=== PATIENT | male | born 1980 | race Caucasian/White ===

== ENCOUNTER 2019-06-12 18:15 | Emergency (ER) | payer SELFPAY ==
[2019-06-12] MEDS ORDERED: LIDOCAINE 1% MPF 5 ML VIAL ONE (18:49)
[2019-06-12] MEDS ORDERED: TETANUS & DIPHTHERIA TOX,ADULT 0.5 ML VIAL ONE (18:49)
--- NOTE | 2019-06-12 19:35 | ER ---
Nurse's Notes [facility] Name: Noe Shields Age: 38 yrs Sex: Male : 1980 Arrival Date: 06/12/2019 Time: 18:20 Bed 27 Private MD: Diagnosis: Laceration of the Right 5th Finger Presentation: 06/12 18:30 Presenting complaint: Patient states: "I cut my finger working on the kitchen sink". aa5 Transition of care: patient was not received from another setting of care. Complicating Factors: There are no complicating factors for this patient. Onset of symptoms was June 12, 2019. Risk Assessment: Do you want to hurt yourself or someone else? Patient reports no desire to harm self or others. Initial Sepsis Screen: Does the patient meet any 2 criteria? No. Patient's initial sepsis screen is negative. Does the patient have a suspected source of infection? No. Patient's initial sepsis screen is negative. Care prior to arrival: None. 18:30 Method Of Arrival: Ambulatory aa5 18:30 Acuity: XIAO 4 aa5 Historical: - Allergies: 18:29 No Known Allergies; aa5 - PMHx: 18:29 Kidney stones; aa5 - PSHx: 18:29 None; aa5 18:29 kidney stone removal; aa5 - Immunization history:: Last tetanus immunization: < 5 years ago. - Social history:: Smoking status: Patient/guardian denies using tobacco. - Ebola Screening: : No symptoms or risks identified at this time. Screenin:50 Abuse screen: Denies threats or abuse. Nutritional screening: No deficits noted. tr5 Tuberculosis screening: No symptoms or risk factors identified. Fall Risk None identified. Assessment: 18:50 General: Appears uncomfortable. General: Behavior is calm, cooperative. Pain: Complains tr5 of pain in right hand Pain does not radiate. Pain currently is 7 out of 10 on a pain scale. Quality of pain is described as aching, Pain began 1 hour ago. Neuro: Level of Consciousness is awake, alert, obeys commands, Oriented to person, place, time. Cardiovascular: Capillary refill < 3 seconds Pulses are all present. Respiratory: Airway is patent Respiratory effort is even, unlabored, Respiratory pattern is regular, symmetrical. GI: No signs and/or symptoms were reported involving the gastrointestinal system. : No signs and/or symptoms were reported regarding the genitourinary system. EENT: No signs and/or symptoms were reported regarding the EENT system. Derm: No signs and/or symptoms reported regarding the dermatologic system. Musculoskeletal: Capillary refill < 3 seconds, Range of motion: intact in all extremities. Injury Description: Laceration sustained to right hand is contaminated, was sustained 30-60 minutes ago. is bleeding a small amount. Vital Signs: 18:30 BP 122 / 90; Pulse 81; Resp 18 S; Temp 97.2(TE); Pulse Ox 99% on R/A; Weight 108.86 kg aa5 (R); Height 6 ft. 2 in. (187.96 cm) (R); Pain 4/10; 18:30 Body Mass Index 30.81 (108.86 kg, 187.96 cm) aa5 ED Course: 18:20 Patient arrived in ED. mr 18:29 Arm band placed on. aa5 18:31 Triage completed. aa5 18:35 Raul Millard RN is Primary Nurse. tr5 18:35 Joey Correa PA is PHCP. jmm 18:35 Mohsen Huang MD is Attending Physician. [facility] 18:50 Patient has correct armband on for positive identification. Bed in low position. Call tr5 light in reach. 19:24 Assist provider with laceration repair Set up tray. Performed by Joey ANAYA tr5 Patient tolerated. 19:50 Dressings: Kerlix non-adherent dressing x 1 right hand. tr5 19:51 Patient did not have IV access during this emergency room visit. 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 Exp: tr5 01/26/2021. Lot #: [id number]. } Route: IM; Site: right deltoid; 20:00 Follow up: Response: No adverse reaction tr5 Outcome: 19:34 Discharge ordered by . jm 19:50 Discharged to home ambulatory. tr5 19:50 Condition: stable 19:50 Discharge instructions given to patient, Instructed on discharge instructions, follow up and referral plans. Demonstrated understanding of instructions, follow-up care. 19:53 Patient left the ED. tr5 Signatures: Joey Correa PA PA jmm Rivera, Mary mr HerreraCynthia carlin, RN RN aa5 Raul Millard RN RN tr5
--- NOTE | 2019-06-12 19:35 | EDPHYS ---
Physician Documentation [facility] Name: Noe Shields Age: 38 yrs Sex: Male : 1980 Arrival Date: 06/12/2019 Time: 18:20 Bed 27 Private MD: ED Physician Mohsen Huang HPI: 06/12 18:37 This 38 yrs old Male presents to ER via Ambulatory with complaints of jmm Laceration To Hand. 18:37 The patient has a laceration Patient states that he accidently cut his right 5th finger jmm against a sink earlier today. Unknown tetanus immunizations. . Onset: The symptoms/episode began/occurred acutely, just prior to arrival. Associated signs and symptoms: Pertinent negatives: heavy bleeding, loss of consciousness, numbness distal to injury, suspected foreign body. The patient has not experienced similar symptoms in the past. Historical: - Allergies: 18:29 No Known Allergies; aa5 - PMHx: 18:29 Kidney stones; aa5 - PSHx: 18:29 None; aa5 18:29 kidney stone removal; aa5 - Immunization history:: Last tetanus immunization: < 5 years ago. - Social history:: Smoking status: Patient/guardian denies using tobacco. - Ebola Screening: : No symptoms or risks identified at this time. ROS: 18:37 Constitutional: Negative for fever, chills, and weight loss, Cardiovascular: Negative jmm for chest pain, palpitations, and edema, Respiratory: Negative for shortness of breath, cough, wheezing, and pleuritic chest pain. 18:37 MS/extremity: Positive for injury or acute deformity. 18:37 Skin: Positive for laceration(s). 18:37 All other systems are negative. Exam: 18:37 Constitutional: This is a well developed, well nourished patient who is awake, alert, jmm and in no acute distress. Head/Face: atraumatic. Eyes: EOMI, no conjunctival erythema appreciated ENT: Moist Mucus Membranes Neck: Trachea midline, Supple Chest/axilla: Normal chest wall appearance and motion. Cardiovascular: Regular rate and rhythm. No edema appreciated Respiratory: Normal respirations, no respiratory distress appreciated Abdomen/GI: Non distended, soft 18:37 Musculoskeletal/extremity: FROM appreciated to the right 5th phalanx against resistance. < 2 sec dist cap refill, NVI. 18:37 Skin: 1.5 cm laceration noted to the dorsal surface of the right proximal phalanx. . 18:37 Neuro: Orientation: is normal, Mentation: is normal, Memory: is normal. Vital Signs: 18:30 BP 122 / 90; Pulse 81; Resp 18 S; Temp 97.2(TE); Pulse Ox 99% on R/A; Weight 108.86 kg aa5 (R); Height 6 ft. 2 in. (187.96 cm) (R); Pain 4/10; 18:30 Body Mass Index 30.81 (108.86 kg, 187.96 cm) aa5 Laceration: 18:37 Wound Repair of 1.5cm ( 0.6in ) subcutaneous laceration to dorsal aspect of proximal jmm phalanx of right little finger. Distal neuro/vascular/tendon intact. Anesthesia: Local anesthetic administered with 2 mls of 1% lidocaine. Wound prep: Moderate cleansing with betadine by me. Skin closed with 3 5-0 Prolene using simple sutures and sterile technique. Patient tolerated fair. MDM: 18:37 Patient medically screened. [facility] 19:33 Data reviewed: vital signs, nurses notes. Counseling: I had a detailed discussion with tatum the patient and/or guardian regarding: the historical points, exam findings, and any diagnostic results supporting the discharge/admit diagnosis, the need for outpatient follow up, to return to the emergency department if symptoms worsen or persist or if there are any questions or concerns that arise at home. ED course: Patient given wound infection return precautions. Patient understood and agrees with the plan of care. . 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 Exp: tr5 01/26/2021. Lot #: [id number]. } Route: IM; Site: right deltoid; 20:00 Follow up: Response: No adverse reaction tr5 Disposition: 06/12/19 19:34 Discharged to Home. Impression: Laceration of the Right 5th Finger. - Condition is Stable. - Discharge Instructions: Laceration Care, Adult. - Medication Reconciliation Form, Thank You Letter, Antibiotic Education, Prescription Opioid Use form. - Work release form (06/13/19 14:31). eb - Follow up: Private Physician; When: 1 week; Reason: Recheck today's complaints, Continuance of care, Staple/Suture removal, Re-evaluation by your physician. Addendum: 06/14/2019 08:37 Co-signature as Attending Physician, Mohsen Huang MD I agree with the assessment and c velez plan of care. Signatures: Mohsen Huang MD MD cha Mickail, Joel, PA PA jmm Calderon, Audri, RN RN aa5 Raul Millard RN RN tr5 Jordyn Shannon Corrections: (The following items were deleted from the chart) 06/12 19:53 19:34 06/12/2019 19:34 Discharged to Home. Impression: Laceration of the Right 5th tr5 Finger. Condition is Stable. Forms are Medication Reconciliation Form, Thank You Letter, Antibiotic Education, Prescription Opioid Use. Follow up: Private Physician; When: 1 week; Reason: Recheck today's complaints, Continuance of care, Staple/Suture removal, Re-evaluation by your physician. tatum
[2019-06-12 20:06] VITALS: BP 122/90; TEMP 97.2; O2SAT 99
== END 2019-06-12 19:53 | disposition home or self-care (01) ==
LOC: ER 18:15
PROC: 0JQJ0ZZ Repair Right Hand Subcutaneous Tissue and Fascia, Open Approach (ICD-10-PCS; principal; 2019-06-12)
DX: S61.216A Laceration without foreign body of right little finger without damage to nail, initial encounter (principal); W26.8XXA Contact with other sharp object(s), not elsewhere classified, initial encounter; Y93.89 Activity, other specified; Y92.9 Unspecified place or not applicable
CPT/HCPCS: 90471; 90714; 99283

== ENCOUNTER 2022-02-02 11:08 | Emergency (ER) | payer SELFPAY ==
--- OUTSIDE RECORDS SUMMARY | 2022-02-02 11:10 | XMS REPORT | Continuity of Care Document ---
:1980 Author Organization [facility] t Address [address] [place] [address] [place] [address] Care Team Providers Name Role Phone TRAN JONES Attending Clinician Unavailable TRAN JONES Admitting Clinician Unavailable Problems This patient has no known problems. Allergies, Adverse Reactions, Alerts This patient has no known allergies or adverse reactions. Medications This patient has no known medications. Procedures This patient has no known procedures. Encounters Start End Encounter Admission Attending Care Care Encounter Source Date/Time Date/Time Type Type Clinicians Facility Department ID 2017-10-25 2017-10-25 Emergency [facility] [id number] 5 [place] 16:39:30 16:39:30 Health 2017-06-08 2017-06-09 Outpatient 1 PETER JONES OBE [id number] [facility] 20:09:00 18:21:00 [facility] Hospit a l ([facility]) Results Test Description Test Time Test Comments Results Result Sour e Comments PYELOGRAM 2017-06-12 [facility] 12:53:[address] [id number] IMAGING REPORTPatient Name: KYLAH DE LA CRUZ RDate of Service: [id number]: 36 Sex: M Order #: [id number] Room: OBEDOB: 1980 X-Ray Number: [id number] Record Number: [id number] Hospital Number: [id number] Physician: TRAN JONESOrdering Physician: NANCY MASON retrograde pyelogram 06/12/2017HISTORY: Distal right ureteral calculusCOMPARISON: None3 fluorographic spot images are submitted. A right ureteral stent is inplace. Some contrast is seen in a nondilated right renal collecting system.No definite calculus is noted.Imaging is limited due to technique. The inferior most aspect of the pelvisis excluded from the images.No other definite acute process.Electronicall y Signed By: Mukul Parish M.D., 06/12/2017 12:50 PMLegally authenticated by ISABELA CEBALLOS 2017-06-12 12:50:35 PATHOLOGY REPORT 2017-06-10 - 10:36:00 TISSUE CONSULTATION REPORTBANORTH [facility]ITALDEPARTMENT OF PATHOLOGYP.[address] [address] ade SARAH BETH HALL M.D.JASON E. MATHERNE, M.D.JOSEPH M. WEMPE, M.D. Patient: KYLAH DE LA CRUZ Roman 1980 36 MRoom:Hosp#: [id number] ___Ordering Physician: VIRGINIE MASON MSONTRIYahirte Rec.: 06/10/2017Date of Proc.: 06/10/2017Lab No.: [id number] Clinical History:- Right renal calculus.FINAL ANATOMIC DIAGNOSIS:RIGHT RENAL CALCULUS, REMOVAL:- STONE (GROSS DIAGNOSIS ONLY).MICROSCOPIC EXAMINATION:- None.GROSS APPEARANCE:- Labeled "right renal calculus," is a single dickson-brown stone and itmeasures 0.5 cm in greatest dimension. The specimen is for grossdiagnosis only. The stone will be sent out for chemical analysis.PATHOLOGIST: Puneet Oviedo Joseph Electronically Signed: 06/10/2017
[2022-02-02] MEDS ORDERED: METHYLPREDNISOLONE 125 MG INJ ONE (12:16)
[2022-02-02] MEDS ORDERED: AZITHROMYCIN 250 MG TAB ONE (12:16)
[2022-02-02] MEDS ORDERED: HYDROCODONE/APAP 10/325 TAB ONE (12:16)
--- NOTE | 2022-02-02 12:35 | EDPHYS ---
Physician Documentation [facility] Name: Noe Shields Age: 41 yrs Sex: Male : 1980 Arrival Date: 02/02/2022 Time: 11:10 Bed 12 Private MD: ED Physician Michelet Lorenzana HPI: 02/02 12:08 This 41 yrs old Male presents to ER via Ambulatory with complaints of Sore Throat, ma2 Headache, Arm Pain, Hernia. 12:08 41-year-old male with sore throat cough runny nose for few days, patient also has ma2 chronic neck pain and MRI done in the past that shows disc prolapse, patient stated neck pain has been intermittent for few weeks, he has follow-up with PCP for that, of note he denies fever, worsening of neck pain no focal weakness change in sensation or urinary incontinence or retention.. 12:10 Associated signs and symptoms: Pertinent negatives cough, dysphagia, fever, flu-like ma2 symptoms, headache. Historical: - Allergies: 11:27 No Known Allergies; iw - PMHx: 11:27 Kidney stones; iw - Social history:: Patient/guardian denies using alcohol, street drugs, The patient lives with family. - Family history:: not pertinent. ROS: 12:08 Constitutional: Negative for fever, chills, and weight loss. ma2 12:08 All other systems are negative. Exam: 12:08 Constitutional: This is a well developed, well nourished patient who is awake, alert, ma2 and in no acute distress. Head/Face: Normocephalic, atraumatic. Eyes: Pupils equal round and reactive to light, extra-ocular motions intact. Lids and lashes normal. Conjunctiva and sclera are non-icteric and not injected. Cornea within normal limits. Periorbital areas with no swelling, redness, or edema. ENT: Patient has inflamed tonsillitis, with no abscess uvula midline, otherwise nares patent. No nasal discharge, no septal abnormalities noted. Tympanic membranes are normal and external auditory canals are clear. Oropharynx with no redness, swelling, or masses, exudates, or evidence of obstruction, uvula midline. Mucous membranes moist. Neck: Trachea midline, no thyromegaly or masses palpated, and no cervical lymphadenopathy. Supple, full range of motion without nuchal rigidity, or vertebral point tenderness. No Meningismus. Chest/axilla: Normal chest wall appearance and motion. Nontender with no deformity. No lesions are appreciated. Cardiovascular: Regular rate and rhythm with a normal S1 and S2. No gallops, murmurs, or rubs. Normal PMI, no JVD. No pulse deficits. Respiratory: Lungs have equal breath sounds bilaterally, clear to auscultation and percussion. No rales, rhonchi or wheezes noted. No increased work of breathing, no retractions or nasal flaring. Abdomen/GI: Soft, non-tender, with normal bowel sounds. No distension or tympany. No guarding or rebound. No evidence of tenderness throughout. Back: No spinal tenderness. No costovertebral tenderness. Full range of motion. Skin: Warm, dry with normal turgor. Normal color with no rashes, no lesions, and no evidence of cellulitis. MS/ Extremity: Pulses equal, no cyanosis. Neurovascular intact. Full, normal range of motion. Neuro: Awake and alert, GCS 15, oriented to person, place, time, and situation. Cranial nerves II-XII grossly intact. Motor strength 5/5 in all extremities. Sensory grossly intact. Cerebellar exam normal. Normal gait. Vital Signs: 11:25 BP 129 / 87; Pulse 105; Resp 18; Temp 98.6; Pulse Ox 99% on R/A; iw MDM: 12:10 Differential diagnosis: bronchitis, erythema multiforme, gastroesophageal reflux ma2 disease, group A strep tonsillitis. Data reviewed: vital signs, nurses notes. Counseling: I had a detailed discussion with the patient and/or guardian regarding: the historical points, exam findings, and any diagnostic results supporting the discharge/admit diagnosis, the presence of at least one elevated blood pressure reading (>120/80) during this emergency department visit, the need for outpatient follow up. Response to treatment: the patient's symptoms have markedly improved after treatment. 12:34 Patient medically screened. ma2 02/02 11:30 Order name: Strep; Complete Time: 12:02 iw 02/02 11:59 Order name: Throat Culture EDMS 02/02 12:04 Order name: Sling; Complete Time: 12:33 ma2 Administered Medications: 12:18 Not Given (Patient Refused): Ketorolac 60 mg IM once ss 12:18 Drug: Zithromax (azithromycin) 500 mg Route: PO; ss 12:48 Follow up: Response: No adverse reaction; Medication administered at discharge. 12:18 Drug: MethylPREDNISolone Sodium Succinate 125 mg Route: IM; Site: right gluteus; ss 12:48 Follow up: Response: No adverse reaction; Medication administered at discharge. 12:18 Drug: [place] (HYDROcodone-acetaminophen) 10 mg-325 mg 1 tabs Route: PO; ss 12:47 Follow up: Response: No adverse reaction; Medication administered at discharge. Disposition Summary: 02/02/22 12:34 Discharge Ordered Location: Home ma2 Condition: Stable ma2 Diagnosis - Acute recurrent tonsillitis, unspecified ma2 - Chronic pain, not elsewhere classified - neck pain ma2 Followup: ma2 - With: Private Physician - When: Tomorrow - Reason: If symptoms return, Continuance of care Discharge Instructions: - Discharge Summary Sheet ma2 - Tonsillitis, [id number] ma2 Forms: - Medication Reconciliation Form ma2 - Thank You Letter ma2 - Antibiotic Education ma2 - Prescription Opioid Use ma2 Prescriptions: - NEURONTIN 100 MG - take 1 tablet by ORAL route 3 times per day; 21 tablet; Refills: 0, Product ma2 Selection Permitted - TORADOL 10 Mg - take 1 tablet by ORAL route 3 times per day; 21 tablet; Refills: 0, Product ma2 Selection Permitted - Diclofenac Sodium 75 mg Oral Tablet Sustained Release - take 1 tablet by ORAL route 2 times per day; 30 tablet; Refills: 0, Product ma2 Selection Permitted - Zithromax Z-Sim 250 mg Oral Tablet - take 1 tablet by ORAL route as directed for 5 days Day 1 - take two (2) tablets ma2 one time. Day 2, 3, 4 , 5 take one (1) tablet once daily.; 6 tablet; Refills: 0, Product Selection Permitted - Medrol (Sim) 4 mg Oral Tablets, Dose Pack - take 1 tablet by ORAL route as directed - follow package instructions; 1 ma2 packet; Refills: 0, Product Selection Permitted Signatures: Dispatcher [employer] Beena Hampton RN RN Laxmi Childs RN RN ss Alzahri, Mohammad, MD MD ma2 Corrections: (The following items were deleted from the chart) 12:11 12:08 Constitutional: This is a well developed, well nourished patient who is awake, ma2 alert, and in no acute distress. Head/Face: Normocephalic, atraumatic. Eyes: Pupils equal round and reactive to light, extra-ocular motions intact. Lids and lashes normal. Conjunctiva and sclera are non-icteric and not injected. Cornea within normal limits. Periorbital areas with no swelling, redness, or edema. ENT: Nares patent. No nasal discharge, no septal abnormalities noted. Tympanic membranes are normal and external auditory canals are clear. Oropharynx with no redness, swelling, or masses, exudates, or evidence of obstruction, uvula midline. Mucous membranes moist. Neck: Trachea midline, no thyromegaly or masses palpated, and no cervical lymphadenopathy. Supple, full range of motion without nuchal rigidity, or vertebral point tenderness. No Meningismus. Chest/axilla: Normal chest wall appearance and motion. Nontender with no deformity. No lesions are appreciated. Cardiovascular: Regular rate and rhythm with a normal S1 and S2. No gallops, murmurs, or rubs. Normal PMI, no JVD. No pulse deficits. Respiratory: Lungs have equal breath sounds bilaterally, clear to auscultation and percussion. No rales, rhonchi or wheezes noted. No increased work of breathing, no retractions or nasal flaring. Abdomen/GI: Soft, non-tender, with normal bowel sounds. No distension or tympany. No guarding or rebound. No evidence of tenderness throughout. Back: No spinal tenderness. No costovertebral tenderness. Full range of motion. Skin: Warm, dry with normal turgor. Normal color with no rashes, no lesions, and no evidence of cellulitis. MS/ Extremity: Pulses equal, no cyanosis. Neurovascular intact. Full, normal range of motion. Neuro: Awake and alert, GCS 15, oriented to person, place, time, and situation. Cranial nerves II-XII grossly intact. Motor strength 5/5 in all extremities. Sensory grossly intact. Cerebellar exam normal. Normal gait. ma2
--- NOTE | 2022-02-02 12:35 | ER ---
Nurse's Notes [facility] Name: Noe Shields Age: 41 yrs Sex: Male : 1980 Arrival Date: 02/02/2022 Time: 11:10 Bed 12 Private MD: Diagnosis: Acute recurrent tonsillitis, unspecified;Chronic pain, not elsewhere classified-neck pain Presentation: 02/02 11:25 Chief complaint: Patient states: feel like I have strep throat , has had it a lot of iw times , has fever, body aches, also has a herniated disc in his neck and he did something yesterday and has pain in right elbow/arm now , can't move it. Coronavirus screen: At this time, the client does not indicate any symptoms associated with coronavirus-19. Ebola Screen: Patient negative for fever greater than or equal to 101.5 degrees Fahrenheit, and additional compatible Ebola Virus Disease symptoms Patient denies exposure to infectious person. Patient denies travel to an Ebola-affected area in the 21 days before illness onset. No symptoms or risks identified at this time. Initial Sepsis Screen: Does the patient meet any 2 criteria? No. Patient's initial sepsis screen is negative. Does the patient have a suspected source of infection? No. Patient's initial sepsis screen is negative. Risk Assessment: Do you want to hurt yourself or someone else? Patient reports no desire to harm self or others. Onset of symptoms was January 31, 2022. 11:25 Method Of Arrival: Ambulatory iw 11:25 Acuity: XIAO 3 iw Historical: - Allergies: 11:27 No Known Allergies; iw - PMHx: 11:27 Kidney stones; iw - Social history:: Patient/guardian denies using alcohol, street drugs, The patient lives with family. - Family history:: not pertinent. Screenin:39 Abuse screen: Denies threats or abuse. Denies injuries from another. Nutritional iw screening: No deficits noted. Tuberculosis screening: No symptoms or risk factors identified. Fall Risk None identified. Assessment: 11:38 General: Appears uncomfortable, Behavior is cooperative. Pain: Complains of pain in iw throat. Neuro: Level of Consciousness is awake, alert, obeys commands, Moves all extremities. Respiratory: Airway is patent Respiratory effort is even, unlabored, Breath sounds are clear bilaterally. EENT: Throat is reddened bilaterally. Derm: Skin is intact, is healthy with good turgor. Musculoskeletal: Range of motion: limited in right elbow. 12:18 Reassessment: Pt refused Toradol, states that no non narcotic pain medication help him ss and is requesting [place] or Tylenol with codeine. Dr. Lorenzana notified and states ok to give [place]. Medications given as ordered. Vital Signs: 11:25 BP 129 / 87; Pulse 105; Resp 18; Temp 98.6; Pulse Ox 99% on R/A; iw ED Course: 11:10 Patient arrived in ED. mr 11:27 Triage completed. iw 11:29 Beena Chiu, RN is Primary Nurse. iw 11:38 Arm band placed on. iw 11:45 Michelet Lorenzana MD is Attending Physician. ma2 12:18 Patient has correct armband on for positive identification. Adult w/ patient. ss 12:18 No provider procedures requiring assistance completed. Patient did not have IV access ss during this emergency room visit. Administered Medications: 12:18 Not Given (Patient Refused): Ketorolac 60 mg IM once ss 12:18 Drug: Zithromax (azithromycin) 500 mg Route: PO; ss 12:48 Follow up: Response: No adverse reaction; Medication administered at discharge. ss 12:18 Drug: MethylPREDNISolone Sodium Succinate 125 mg Route: IM; Site: right gluteus; ss 12:48 Follow up: Response: No adverse reaction; Medication administered at discharge. ss 12:18 Drug: [place] (HYDROcodone-acetaminophen) 10 mg-325 mg 1 tabs Route: PO; ss 12:47 Follow up: Response: No adverse reaction; Medication administered at discharge. ss Medication: 12:18 VIS not applicable for this client. ss Outcome: 12:34 Discharge ordered by . ma2 12:48 Discharged to home ambulatory. ss 12:48 Condition: good 12:48 Discharge instructions given to patient, family, Instructed on discharge instructions, follow up and referral plans. medication usage, Demonstrated understanding of instructions, follow-up care, medications, Prescriptions given X x5 12:49 Patient left the ED. ss Signatures: Bryan, Cassy mr Beena Chiu, GERARDO CARRILLO Laxmi Childs RN RN Alzahri, Mohammad, MD MD ma2
[2022-02-02 12:55] VITALS: BP 129/87; TEMP 98.6; O2SAT 99
== END 2022-02-02 12:49 | disposition home or self-care (01) ==
LOC: ER 11:08
DX: J03.91 Acute recurrent tonsillitis, unspecified (principal); G89.29 Other chronic pain
CPT/HCPCS: 87070; 87081; 96372; 99283; J2930

== ENCOUNTER 2022-03-20 11:23 | Emergency (ER) | payer OTHER, SELFPAY ==
[2022-03-20] MEDS ORDERED: dexAMETHasone 10 MG/ML VIAL ONE (15:11)
[2022-03-20] MEDS ORDERED: HYDROMORPHONE HCL 1 MG/ML INJ ONE (15:11)
--- NOTE | 2022-03-20 15:41 | ER ---
Nurse's Notes [facility] Name: Noe Shields Age: 41 yrs Sex: Male : 1980 Arrival Date: 03/20/2022 Time: 11:25 Bed 12 Private MD: Diagnosis: Cervical disc disorder with radiculopathy, cervicothoracic region-chronic;Low back pain Presentation: 03/20 12:08 Chief complaint: Patient states: "I have a herniated disc in my neck and something is ss going on. I keep getting these shocks down my back." Pt reports that this has been ongoing x 3 days. Denies injury. Coronavirus screen: Client denies travel out of the [place] in the last 14 days. Ebola Screen: Patient denies exposure to infectious person. Patient denies travel to an Ebola-affected area in the 21 days before illness onset. Acute neurological deficit: none identified. Initial Sepsis Screen: Does the patient meet any 2 criteria? No. Patient's initial sepsis screen is negative. Does the patient have a suspected source of infection? No. Patient's initial sepsis screen is negative. Risk Assessment: Do you want to hurt yourself or someone else? Patient reports no desire to harm self or others. Onset of symptoms was March 17, 2022. 12:08 Method Of Arrival: Ambulatory ss 12:08 Acuity: XIAO 4 ss Historical: - Allergies: 12:10 tramadol; ss - PMHx: 12:10 Kidney stones; herniated disc in neck; ss - Immunization history:: Client reports having NOT received the Covid vaccine. - Social history:: Smoking status: Patient denies any tobacco usage or history of. Screenin:02 Abuse screen: Denies threats or abuse. Denies injuries from another. Nutritional ss screening: No deficits noted. Tuberculosis screening: Never had TB. Fall Risk None identified. Assessment: 11:30 Reassessment: Called to triage. No answer. Vital Signs: 12:10 Pulse 85; Resp 16; Temp 98.1(TE); Pulse Ox 100% on R/A; Weight 108.86 kg; Height 6 ft. ss 2 in. (187.96 cm); Pain 8/10; 12:13 BP 135 / 96; ss 12:10 Body Mass Index 30.81 (108.86 kg, 187.96 cm) ss ED Course: 11:25 Patient arrived in ED. as 12:10 Triage completed. ss 12:10 Arm band placed on right wrist. ss 13:24 Mohsen Perry PA is PHCP. cp 13:24 Duncan Herr MD is Attending Physician. cp 14:51 Laxmi Childs RN is Primary Nurse. ss 15:39 Gustavo Lira MD is Referral Physician. cp 16:00 No provider procedures requiring assistance completed. Patient did not have IV access ss during this emergency room visit. 16:02 Patient has correct armband on for positive identification. Bed in low position. ss Administered Medications: 15:09 Drug: Dexamethasone 10 mg Route: IM; Site: right deltoid; ss 16:00 Follow up: Response: No adverse reaction; Marked relief of symptoms; Pain is decreased; ss RASS: Alert and Calm (0) 15:09 Drug: Dilaudid (HYDROmorphone) 1 mg Route: IM; Site: left deltoid; ss 16:00 Follow up: Response: No adverse reaction; Marked relief of symptoms; Pain is decreased ss Outcome: 15:40 Discharge ordered by MD. cp 16:00 Discharged to home ambulatory, with significant other. ss 16:00 Condition: good 16:00 Discharge instructions given to patient, family, Instructed on discharge instructions, follow up and referral plans. no driving heavy equipment, Demonstrated understanding of instructions, follow-up care, medications, Prescriptions given X 3. 16:02 Patient left the ED. ss Signatures: Courtney Ballesteros as Laxmi Childs RN RN Mohsen Perry PA PA cp Corrections: (The following items were deleted from the chart) 12:11 12:10 Allergies: No Known Allergies; ss ss
--- NOTE | 2022-03-20 15:41 | EDPHYS ---
Physician Documentation [facility] Name: Noe Shields Age: 41 yrs Sex: Male : 1980 Arrival Date: 03/20/2022 Time: 11:25 Bed 12 Private MD: ED Physician Duncan Herr HPI: 03/20 14:45 This 41 yrs old Male presents to ER via Ambulatory with complaints of Neck Pain, <24hrs cp Old, Back Pain. 14:45 The patient or guardian complains of pain, that is chronic. The symptoms are located at cp the C4, C5 and C6. Onset: The symptoms/episode began/occurred chronic, worse over past 1-2 months. Associated signs and symptoms: Pertinent positives: tingling, in the right arm, weakness, of the right hand, Pertinent negatives: chills, constipation, fever, bladder incontinence, bowel incontinence, numbness, vomiting. The pain radiates to the right arm. Severity of symptoms: in the emergency department the symptoms are actually worse, markedly. Patient reports due to change in insurance, he has been unable to get appointment for surgical consultation with a DR Singh neurosurgeon. Patient reports he is prescribed pain meds, but pain worse today with tightness and pain to lower back. Historical: - Allergies: 12:10 tramadol; ss - PMHx: 12:10 Kidney stones; herniated disc in neck; ss - Immunization history:: Client reports having NOT received the Covid vaccine. - Social history:: Smoking status: Patient denies any tobacco usage or history of. ROS: 14:50 Constitutional: Negative for body aches, chills, fever, poor PO intake. cp 14:50 Eyes: Negative for injury, pain, redness, and discharge. cp 14:50 ENT: Negative for drainage from ear(s), ear pain, sore throat, difficulty swallowing, difficulty handling secretions. 14:50 Neck: Positive for pain with movement, pain at rest, stiffness, tenderness. 14:50 Cardiovascular: Negative for chest pain, edema, palpitations. 14:50 Respiratory: Negative for cough, shortness of breath, wheezing. 14:50 Abdomen/GI: Negative for abdominal pain, nausea, vomiting, and diarrhea, bowel incontinence. 14:50 Back: Positive for pain at rest, pain with movement, of the low back. 14:50 : Negative for bladder incontinence, testicular pain 14:50 Neuro: Positive for tingling, weakness, of the right hand and right arm, Negative for altered mental status, headache, numbness. 14:50 All other systems are negative. Exam: 14:55 Constitutional: The patient appears in no acute distress, alert, awake, non-toxic, well cp developed, well nourished, uncomfortable. 14:55 Head/Face: Normocephalic, atraumatic. cp 14:55 Eyes: Periorbital structures: appear normal, Conjunctiva: normal, no exudate, no injection, Sclera: no appreciated abnormality, Lids and lashes: appear normal, bilaterally. 14:55 ENT: External ear(s): are unremarkable, Nose: is normal, Mouth: Lips: moist, Oral mucosa: moist, Posterior pharynx: Airway: no evidence of obstruction, patent. 14:55 Neck: C-spine: vertebral tenderness, that is severe, appreciated at C4, C5 and C6, crepitus, is not appreciated, ROM/movement: pain, that is severe, with any movement, Meningeal signs: are not present, nuchal rigidity, is not appreciated. 14:55 Chest/axilla: Inspection: normal. 14:55 Cardiovascular: Rate: normal, Rhythm: regular. 14:55 Respiratory: the patient does not display signs of respiratory distress, Respirations: normal, no use of accessory muscles, no retractions, labored breathing, is not present, Breath sounds: are clear throughout, no decreased breath sounds, no stridor, no wheezing. 14:55 Abdomen/GI: Inspection: abdomen appears normal, Palpation: abdomen is soft and non-tender, in all quadrants. 14:55 Back: pain, that is moderate, of the left low back, ROM is painful, with all movement. 14:55 Skin: cellulitis, is not appreciated, no rash present. 14:55 Neuro: Orientation: to person, place \T\ time. Mentation: is normal, Motor: moves all fours, strength is normal, Sensation: no obvious gross deficits, Gait: is steady, Deep tendon reflexes are 2+ (normal) in the right tricep, right bicep, right brachioradialis, left bicep, left tricep and left brachioradialis. Vital Signs: 12:10 Pulse 85; Resp 16; Temp 98.1(TE); Pulse Ox 100% on R/A; Weight 108.86 kg; Height 6 ft. ss 2 in. (187.96 cm); Pain 8/10; 12:13 BP 135 / 96; ss 12:10 Body Mass Index 30.81 (108.86 kg, 187.96 cm) ss MDM: 14:20 Patient medically screened. cp 15:00 Differential diagnosis: Cervical Disc Herniation cervical strain, cauda equina, spinal cp stenosis. 15:40 Data reviewed: vital signs, nurses notes. 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 Administered Medications: 15:09 Drug: Dexamethasone 10 mg Route: IM; Site: right deltoid; ss 16:00 Follow up: Response: No adverse reaction; Marked relief of symptoms; Pain is decreased; ss RASS: Alert and Calm (0) 15:09 Drug: Dilaudid (HYDROmorphone) 1 mg Route: IM; Site: left deltoid; ss 16:00 Follow up: Response: No adverse reaction; Marked relief of symptoms; Pain is decreased ss Disposition Summary: 03/20/22 15:40 Discharge Ordered Location: Home cp Problem: chronic cp Symptoms: have improved cp Condition: Stable cp Diagnosis - Cervical disc disorder with radiculopathy, cervicothoracic region - chronic cp - Low back pain cp Followup: cp - With: Gustavo Lira MD - When: 2 - 3 days - Reason: Recheck today's complaints Discharge Instructions: - Discharge Summary Sheet cp - Acute Back Pain, Adult cp - Cervical Radiculopathy cp - Herniated Disk cp - Back Exercises cp Forms: - Medication Reconciliation Form cp - Thank You Letter cp - Antibiotic Education cp - Prescription Opioid Use cp Prescriptions: - Lidoderm 5 % Topical adhesive patch,medicated - apply 1 patch by TOPICAL route once daily; 20 patch; Refills: 0, Product cp Selection Permitted - Baclofen 10 mg Oral Tablet - take 1 tablet by ORAL route 3 times per day; 20 tablet; Refills: 0, Product cp Selection Permitted - Medrol (Sim) 4 mg Oral Tablets, Dose Pack - take 1 tablet by ORAL route as directed - follow package instructions; 1 cp packet; Refills: 0, Product Selection Permitted Signatures: Laxmi Childs RN RN ss Mohsen Perry PA PA cp Corrections: (The following items were deleted from the chart) 12:11 12:10 Allergies: No Known Allergies; ss
[2022-03-20 18:38] VITALS: BP 135/96
[2022-03-20 18:56] VITALS: TEMP 98.1; O2SAT 100
== END 2022-03-20 16:02 | disposition home or self-care (01) ==
LOC: ER 11:23
DX: M50.13 Cervical disc disorder with radiculopathy, cervicothoracic region (principal); Z87.442 Personal history of urinary calculi; Z88.5 Allergy status to narcotic agent
CPT/HCPCS: J1100; J1170

== ENCOUNTER 2022-04-09 06:30 | Emergency (ER) | payer OTHER ==
--- OUTSIDE RECORDS SUMMARY | 2022-04-09 06:33 | XMS REPORT | Continuity of Care Document ---
:1980 Author Organization [facility] t Address [address] [place] [address] [place] [id number] Care Team Providers Name Role Phone KAREN Attending Clinician Unavailable KAREN Admitting Clinician Unavailable Problems This patient has no known problems. Allergies, Adverse Reactions, Alerts This patient has no known allergies or adverse reactions. Medications This patient has no known medications. Procedures This patient has no known procedures. Encounters Start End Encounter Admission Attending Care Care Encounter Source Date/Time Date/Time Type Type Clinicians Facility Department ID 2017-10-25 2017-10-25 Emergency [facility] MED [id number] 5 [place] 16:39:30 16:39:30 Health 2017-06-08 2017-06-09 Outpatient 1 PETER JONES OBJb [id number] [facility] 20:09[facility]00 [facility] Results Test Description Test Time Test Comments Results Result Sourc e Comments PYELOGRAM 2017-06-12 [facility] 12:53:[address] [id number] IMAGING REPORTPatient Name: KYLAH DE LA CRUZ RDate of Service: [id number]: 36 Sex: M Order #: [id number] Room: OBEDOB: 1980 X-Ray Number: [id number] Record Number: [id number] Hospital Number: [id number] Physician: Gopal JONESing Physician: NANCY MASON retrograde pyelogram 06/12/2017HISTORY: Distal [...] PATHOLOGY REPORT 2017-06-10 - 10:36:00 [facility] PATHOLOGYP.[address]BEAUN[facility] [place] [address] ade SARAH BETH HALL M.D.JASON E. MATHERNE, M.D.JOSEPH M. WEMPE, M.D. Patient: KYLAH DE LA CRUZ Roman 1980 36 MRoom:[facility]#: [id number] ___Ordering Physician: VIRGINIE MASON TNJAMAALMNYahirte Rec.: 06/10/2017Date of Proc.: 06/10/2017Lab No.: [id number] Clinical History:- Right renal calculus.FINAL ANATOMIC DIAGNOSIS:RIGHT RENAL CALCULUS, REMOVAL:- STONE (GROSS DIAGNOSIS ONLY).MICROSCOPIC EXAMINATION:- None.GROSS APPEARANCE:- Labeled "right renal calculus," is a single dickson-brown stone and itmeasures 0.5 cm in greatest dimension. The specimen is for grossdiagnosis only. The stone will be sent out for chemical analysis.PATHOLOGIST: Puneet Oviedo Joseph Electronically Signed: 06/10/2017
[2022-04-09] MEDS ORDERED: METHYLPREDNISOLONE 125 MG INJ ONE (07:40)
[2022-04-09] MEDS ORDERED: METHOCARBAMOL 1,000 MG/10 ML VIAL IV ONE (07:41)
[2022-04-09] MEDS ORDERED: KETOROLAC 30 MG/ML INJ ONE ×2 (07:41→09:48)
[2022-04-09] MEDS ORDERED: NA CHLORIDE 0.9% 100 ML ONE (07:41)
--- NOTE | 2022-04-09 09:30 | EDPHYS ---
Physician Documentation [facility] Name: Noe Shields Age: 41 yrs Sex: Male : 1980 Arrival Date: 04/09/2022 Time: 06:33 Bed 16 Private MD: ED Physician Mohsen Huang HPI: 04/09 09:22 This 41 yrs old Male presents to ER via Ambulatory with complaints of Back allison Pain. 09:22 The patient presents with pain that is acute, that is chronic, with no known mechanism allison of injury. The symptoms are located in the low back, thoracic area and lumbar area. Onset: The symptoms/episode began/occurred 6 month(s) ago. The pain radiates to the lumbar area. Associated signs and symptoms: Pertinent positives: numbness, tingling. The problem was sustained from a chronic condition, the patient has known disc disease. Modifying factors: The patient symptoms are alleviated by nothing, remaining still, the patient symptoms are aggravated by bending, running out of pain medications, standing. Severity of symptoms: At their worst the symptoms were mild, in the emergency department the symptoms are unchanged. The patient has not experienced similar symptoms in the past. Historical: - Allergies: 06:41 tramadol; bh1 - PMHx: 06:41 herniated disc in neck; Kidney stones; bh1 - Immunization history:: Adult Immunizations up to date. - Social history:: Smoking status: Patient denies any tobacco usage or history of. - Family history:: not pertinent. ROS: 09:22 Constitutional: Negative for fever, chills, and weight loss, Eyes: Negative for injury, allison pain, redness, and discharge, ENT: Negative for injury, pain, and discharge, Neck: Negative for injury, pain, and swelling, Cardiovascular: Negative for chest pain, palpitations, and edema, Respiratory: Negative for shortness of breath, cough, wheezing, and pleuritic chest pain, Abdomen/GI: Negative for abdominal pain, nausea, vomiting, diarrhea, and constipation, : Negative for injury, bleeding, discharge, and swelling, MS/Extremity: Negative for injury and deformity, Skin: Negative for injury, rash, and discoloration, Neuro: Negative for headache, weakness, numbness, tingling, and seizure, Psych: Negative for depression, anxiety, suicide ideation, homicidal ideation, and hallucinations, Allergy/Immunology: Negative for hives, rash, and allergies, Endocrine: Negative for neck swelling, polydipsia, polyuria, polyphagia, and marked weight changes, Hematologic/Lymphatic: Negative for swollen nodes, abnormal bleeding, and unusual bruising. 09:22 Back: Positive for decreased range of motion, pain at rest, pain with movement. Exam: :22 Constitutional: This is a well developed, well nourished patient who is awake, alert, allison and in no acute distress. Head/Face: Normocephalic, atraumatic. Eyes: Pupils equal round and reactive to light, extra-ocular motions intact. Lids and lashes normal. Conjunctiva and sclera are non-icteric and not injected. Cornea within normal limits. Periorbital areas with no swelling, redness, or edema. ENT: Nares patent. No nasal discharge, no septal abnormalities noted. Tympanic membranes are normal and external auditory canals are clear. Oropharynx with no redness, swelling, or masses, exudates, or evidence of obstruction, uvula midline. Mucous membranes moist. Neck: Trachea midline, no thyromegaly or masses palpated, and no cervical lymphadenopathy. Supple, full range of motion without nuchal rigidity, or vertebral point tenderness. No Meningismus. Chest/axilla: Normal chest wall appearance and motion. Nontender with no deformity. No lesions are appreciated. Cardiovascular: Regular rate and rhythm with a normal S1 and S2. No gallops, murmurs, or rubs. Normal PMI, no JVD. No pulse deficits. Respiratory: Lungs have equal breath sounds bilaterally, clear to auscultation and percussion. No rales, rhonchi or wheezes noted. No increased work of breathing, no retractions or nasal flaring. Abdomen/GI: Soft, non-tender, with normal bowel sounds. No distension or tympany. No guarding or rebound. No evidence of tenderness throughout. Male : Normal genitalia with no discharge or lesions. Skin: Warm, dry with normal turgor. Normal color with no rashes, no lesions, and no evidence of cellulitis. MS/ Extremity: Pulses equal, no cyanosis. Neurovascular intact. Full, normal range of motion. Neuro: Awake and alert, GCS 15, oriented to person, place, time, and situation. Cranial nerves II-XII grossly intact. Motor strength 5/5 in all extremities. Sensory grossly intact. Cerebellar exam normal. Normal gait. Psych: Awake, alert, with orientation to person, place and time. Behavior, mood, and affect are within normal limits. 09:22 Back: pain, that is mild, that is moderate, of the thoracic area and lumbar area, ROM is painful, with flexion, with extension, normal spinal alignment noted, CVA tenderness, is absent, vertebral tenderness, is not appreciated, muscle spasm, is appreciated in the left subscapular area, right subscapular area, left low back, left mid back, right mid back and right low back. Vital Signs: 06:39 BP 123 / 88; Pulse 73; Resp 20; Temp 97.5; Pulse Ox 100% on R/A; Weight 111.13 kg; [facility] Height 6 ft. 2 in. (187.96 cm); Pain 7/10; 09:00 BP 127 / 74; Pulse 88; Resp 16; Pulse Ox 100% on R/A; vg1 10:00 BP 129 / 77; Pulse 95; Resp 16; Pulse Ox 100% on R/A; vg1 06:39 Body Mass Index 31.46 (111.13 kg, 187.96 cm) [facility] MDM: 07:24 Patient medically screened. [facility] 09:27 Data reviewed: vital signs, nurses notes, radiologic studies, MRI. Data interpreted: [facility] radiation monitor: not applicable for this patient encounter. rate is 73 beats/min, rhythm is regular, Pulse oximetry: on room air. Counseling: I had a detailed discussion with the patient and/or guardian regarding: the historical points, exam findings, and any diagnostic results supporting the discharge/admit diagnosis, lab results, radiology results. Administered Medications: 07:49 Drug: SOLU-Medrol (methylPrednisoLONE) 125 mg Route: IVP; Site: left antecubital; [facility] 09:05 Follow up: Response: No adverse reaction; No change in condition [facility] 07:51 Drug: Ketorolac 15 mg Route: IVP; Site: left antecubital; 1 09:05 Follow up: Response: No adverse reaction; No change in condition [facility] 08:00 Drug: Robaxin (methocarbamol) 1 grams Route: IVPB; Infused Over: 1 hrs; Site: left vg1 antecubital; 09:05 Follow up: IV Status: Completed infusion; IV Intake: 100ml vg1 10:00 Drug: Decadron (dexamethasone) 4 mg Route: PO; vg1 10:12 Follow up: Response: Medication administered at discharge. vg1 10:02 Drug: Ketorolac 15 mg Route: IVP; Site: left antecubital; vg1 10:12 Follow up: Response: Medication administered at discharge. vg1 Disposition Summary: 04/09/22 09:29 Discharge Ordered Location: Home [facility] Problem: new allison Symptoms: have improved allison Condition: Stable allison Diagnosis - Cervical disc disorder with radiculopathy allison - Radiculopathy, thoracolumbar region allison Followup: allison - With: Private Physician - When: 2 - 3 days - Reason: Recheck today's complaints, Continuance of care, Re-evaluation by your physician Followup: [facility] - With: Sanjay Guy MD - When: 2 - 3 days - Reason: Recheck today's complaints, Continuance of care, Re-evaluation by your physician Discharge Instructions: - Discharge Summary Sheet allison - Acute Back Pain, Adult allison - Cervical Radiculopathy allison - Chronic Back Pain, Hqcg-of-[id number] allison - Radicular Pain [facility] Forms: - Medication Reconciliation Form [facility] - Thank You Letter [facility] - Antibiotic Education [facility] - Prescription Opioid Use [facility] Prescriptions: - dexamethasone 2 mg Oral tablet - take 1 tablet by ORAL route 2 times per day; 10 tablet; Refills: 0, Product [facility] Selection Permitted - Ibuprofen 600 mg Oral Tablet - take 1 tablet by ORAL route every 6 hours As needed take with food; 30 tablet; [facility] Refills: 0, Product Selection Permitted - Cyclobenzaprine 5 mg Oral Tablet - take 1 tablet by ORAL route 3 times per day As needed; 15 tablet; Refills: 0, [facility] Product Selection Permitted - Tylenol-Codeine #3 300 mg-30 mg Oral - take 2 tablet by ORAL route every 6 hours; 20 tablet; Refills: 0, Product [facility] Selection Permitted Signatures: Mohsen Huang MD MD cha Rittger, Kevin, MD MD kdr Garcia, Victoria RN RN vg1 Philomena Gupta RN RN bh1
--- NOTE | 2022-04-09 09:30 | ER ---
Nurse's Notes [facility] Name: Noe Shields Age: 41 yrs Sex: Male : 1980 Arrival Date: 04/09/2022 Time: 06:33 Bed 16 Private MD: Diagnosis: Cervical disc disorder with radiculopathy;Radiculopathy, thoracolumbar region Presentation: 04/09 06:39 Chief complaint: Patient states: PATIENT REPORTS CHRONIC BACK PAIN DUE TO A HERNIATED 1 DISC IN HIS LUMBAR SPINE. HE IS NOW REPORTING PAIN IN HIS RIGHT ARM, NECK AND LEG AND IS UNABLE TO GET TREATMENT FROM HIS PCP AT THIS TIME. Coronavirus screen: Vaccine status: Patient reports being unvaccinated. At this time, the client does not indicate any symptoms associated with coronavirus-19. Ebola Screen: Patient negative for fever greater than or equal to 101.5 degrees Fahrenheit, and additional compatible Ebola Virus Disease symptoms. Initial Sepsis Screen: Does the patient meet any 2 criteria? No. Patient's initial sepsis screen is negative. Does the patient have a suspected source of infection? No. Patient's initial sepsis screen is negative. Risk Assessment: Do you want to hurt yourself or someone else? Patient reports no desire to harm self or others. Onset of symptoms was April 09, 2022. 06:39 Method Of Arrival: Ambulatory [facility] 06:39 Acuity: XIAO 4 [facility] Triage Assessment: 06:42 General: Appears uncomfortable, Behavior is calm, cooperative, appropriate for age. [facility] Pain: Complains of pain in neck, right arm and right leg Pain currently is 7 out of 10 on a pain scale. Musculoskeletal: Circulation, motion, and sensation intact. Historical: - Allergies: 06:41 tramadol; 1 - PMHx: 06:41 herniated disc in neck; Kidney stones; 1 - Immunization history:: Adult Immunizations up to date. - Social history:: Smoking status: Patient denies any tobacco usage or history of. - Family history:: not pertinent. Screenin:03 Abuse screen: Denies threats or abuse. Nutritional screening: No deficits noted. vg1 Tuberculosis screening: No symptoms or risk factors identified. Fall Risk No fall in past 12 months (0 pts). No secondary diagnosis (0 pts). IV access (20 points). Ambulatory Aid- None/Bed Rest/Nurse Assist (0 pts). Gait- Normal/Bed Rest/Wheelchair (0 pts) Mental Status- Oriented to own ability (0 pts). Total Quarles Fall Scale indicates No Risk (0-24 pts). Assessment: 06:57 General: Appears uncomfortable, Behavior is calm, cooperative. Pain: Complains of pain ll3 in right leg and right arm and neck Pain currently is 7 out of 10 on a pain scale. Neuro: Level of Consciousness is awake, alert, obeys commands, Oriented to person, place, time, situation. Respiratory: Respiratory effort is even, unlabored, Respiratory pattern is regular, symmetrical. Derm: Skin is pink, warm \\T\\ dry. Musculoskeletal: Circulation, motion, and sensation intact. Range of motion: limited in right knee Reports pain in right leg and right arm and neck. 08:03 Reassessment: Patient appears in no apparent distress at this time. No changes from vg1 previously documented assessment. Patient and/or family updated on plan of care and expected duration. Pain level reassessed. Patient is alert, oriented x 3, equal unlabored respirations, skin warm/dry/pink. 09:04 Reassessment: Patient appears in no apparent distress at this time. No changes from vg1 previously documented assessment. Patient and/or family updated on plan of care and expected duration. Pain level reassessed. Patient is alert, oriented x 3, equal unlabored respirations, skin warm/dry/pink. Pt stated "im still in a lot of pain" notified provider. Vital Signs: 06:39 BP 123 / 88; Pulse 73; Resp 20; Temp 97.5; Pulse Ox 100% on R/A; Weight 111.13 kg; 1 Height 6 ft. 2 in. (187.96 cm); Pain 7/10; 09:00 BP 127 / 74; Pulse 88; Resp 16; Pulse Ox 100% on R/A; vg1 10:00 BP 129 / 77; Pulse 95; Resp 16; Pulse Ox 100% on R/A; vg1 06:39 Body Mass Index 31.46 (111.13 kg, 187.96 cm) [facility] ED Course: 06:33 Patient arrived in ED. 2 06:41 Triage completed. 1 06:42 Arm band placed on right wrist. [facility] 07:04 Duncan Herr MD is Attending Physician. kdr 07:23 Attending Physician role handed off by Duncan Herr MD allison 07:23 Mohsen Huang MD is Attending Physician. allison 07:29 Viviane Martin, GERARDO is Primary Nurse. vg1 07:48 Inserted saline lock: 20 gauge in left antecubital area, using aseptic technique. vg1 08:03 Patient has correct armband on for positive identification. Bed in low position. Call vg1 light in reach. Side rails up X 1. 08:03 No provider procedures requiring assistance completed. vg1 09:29 Sanjay Guy MD is Referral Physician. allison 10:13 IV discontinued, intact, bleeding controlled, No redness/swelling at site. Pressure vg1 dressing applied. Administered Medications: 07:49 Drug: SOLU-Medrol (methylPrednisoLONE) 125 mg Route: IVP; Site: left antecubital; vg1 09:05 Follow up: Response: No adverse reaction; No change in condition vg1 07:51 Drug: Ketorolac 15 mg Route: IVP; Site: left antecubital; vg1 09:05 Follow up: Response: No adverse reaction; No change in condition vg1 08:00 Drug: Robaxin (methocarbamol) 1 grams Route: IVPB; Infused Over: 1 hrs; Site: left vg1 antecubital; 09:05 Follow up: IV Status: Completed infusion; IV Intake: 100ml vg1 10:00 Drug: Decadron (dexamethasone) 4 mg Route: PO; vg1 10:12 Follow up: Response: Medication administered at discharge. vg1 10:02 Drug: Ketorolac 15 mg Route: IVP; Site: left antecubital; vg1 10:12 Follow up: Response: Medication administered at discharge. vg1 Medication: 08:04 VIS not applicable for this client. vg1 Intake: 09:05 IV: 100ml; Total: 100ml. vg1 Outcome: 09:29 Discharge ordered by . allison 10:13 Discharged to home ambulatory. vg1 10:13 Condition: good 10:13 Discharge instructions given to patient, Instructed on discharge instructions, follow up and referral plans. medication usage, Demonstrated understanding of instructions, follow-up care, medications, Prescriptions given X 4. 10:13 Patient left the ED. vg1 Signatures: Sal, MohsenMD MD allison baugh Kevin, MD MD kdr Garcia, Viviane, RN RN vg1 Tara Giraldo, Wilfred, RN RN ll3 Philomena Gupta RN RN bh1
[2022-04-09] MEDS ORDERED: dexAMETHasone 4 MG TAB ONE (09:48)
[2022-04-09 10:23] VITALS: TEMP 97.5; O2SAT 100
[2022-04-09 10:26] VITALS: BP 129/77
== END 2022-04-09 10:13 | disposition home or self-care (01) ==
LOC: ER 06:30
DX: M54.15 Radiculopathy, thoracolumbar region (principal); Z87.442 Personal history of urinary calculi; Z88.5 Allergy status to narcotic agent
CPT/HCPCS: 96365; 96375; 99283; J8540; J2930; J2800

== ENCOUNTER 2022-06-11 11:54 | Emergency (ER) | payer OTHER ==
[2022-06-11] MEDS ORDERED: MORPHINE 4 MG/ML SYR ONE (12:22)
[2022-06-11] MEDS ORDERED: dexAMETHasone 10 MG/ML VIAL ONE (12:22)
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
--- NOTE | 2022-06-11 13:13 | ER ---
Nurse's Notes [facility] Name: Noe Shields Age: 41 yrs Sex: Male : 1980 Arrival Date: 06/11/2022 Time: 11:55 Bed 17 Private MD: Ruth Linder Diagnosis: Low back pain Presentation: 06/11 12:13 Chief complaint: Patient states: low back pain and neck pain that is chronic, denies aa5 any recent injury. Coronavirus screen: At this time, the client does not indicate any symptoms associated with coronavirus-19. Ebola Screen: Patient denies travel to an Ebola-affected area in the 21 days before illness onset. Initial Sepsis Screen: Does the patient meet any 2 criteria? No. Patient's initial sepsis screen is negative. Does the patient have a suspected source of infection? No. Patient's initial sepsis screen is negative. Risk Assessment: Do you want to hurt yourself or someone else? Patient reports no desire to harm self or others. Onset of symptoms was May 2022. 12:13 Acuity: XIAO 4 aa5 12:13 Method Of Arrival: Ambulatory aa5 Triage Assessment: 12:39 General: Appears in no apparent distress. uncomfortable, Behavior is calm, cooperative. jh6 Pain: Complains of pain in coccyx, left lower back and right lower back Pain currently is 9 out of 10 on a pain scale. Quality of pain is described as sharp, shooting, Pain began 2-3 days ago. Is continuous, Aggravated by increased activity, repositioning, weight bearing. Musculoskeletal: Circulation, motion, and sensation intact. Capillary refill < 3 seconds, Range of motion: limited in right hip, right knee and right ankle. Historical: - Allergies: 12:14 tramadol; aa5 - PMHx: 12:14 herniated disc in neck; Kidney stones; aa5 - Immunization history:: Adult Immunizations unknown. - Social history:: Smoking status: Patient denies any tobacco usage or history of. Screenin:38 Abuse screen: Denies threats or abuse. Denies injuries from another. Nutritional jh6 screening: No deficits noted. Tuberculosis screening: No symptoms or risk factors identified. Fall Risk Gait- Impaired (20 pts.). Assessment: 12:40 General: Appears in no apparent distress. uncomfortable. Pain: Complains of pain in jh6 coccyx, left lower back and right lower back Pain radiates to right leg Pain currently is 9 out of 10 on a pain scale. Pain began 2-3 days ago. Is continuous, Aggravated by increased activity, repositioning, weight bearing. Neuro: No deficits noted. Carreon Agitation-Sedation Scale (RASS): Level of Consciousness is awake, alert, obeys commands. Musculoskeletal: Reports numbness in right leg since 2-3 DAYS.. 13:20 Reassessment: Patient and/or family updated on plan of care and expected duration. Pain jh6 level reassessed. Patient is alert, oriented x 3, equal unlabored respirations, skin warm/dry/pink. Patient states feeling better. Patient states symptoms have improved. Pain: Pain currently is 4 out of 10 on a pain scale. Vital Signs: 12:15 BP 138 / 88; Pulse 79; Resp 18 S; Temp 98.4(TE); Pulse Ox 98% on R/A; Weight 111.58 kg aa5 (R); Height 6 ft. 2 in. (187.96 cm) (R); 13:20 BP 127 / 82; Pulse 77; Resp 18; Pulse Ox 100% ; Pain 4/10; jh6 12:15 Body Mass Index 31.58 (111.58 kg, 187.96 cm) aa5 ED Course: 11:55 Patient arrived in ED. am2 11:55 Ruth Linder FNP-C is Private Physician. am2 11:55 Kalyn Pruett FNP is [facility]. jh7 11:55 Mohsen Huang MD is Attending Physician. jh7 12:14 Triage completed. aa5 12:15 Arm band placed on. aa5 12:20 Kalyn Brennan, GERARDO is Primary Nurse. jh6 12:41 Bed in low position. Call light in reach. Side rails up X2. Adult w/ patient. jh6 12:41 No provider procedures requiring assistance completed. Inserted Patient did not have IV jh6 access during this emergency room visit. Administered Medications: 12:30 Drug: Dexamethasone 10 mg Route: IM; Site: right gluteus; jh6 13:20 Follow up: Response: Pain is decreased jh6 12:30 Drug: morphine 4 mg Route: IM; Site: right gluteus; jh6 13:20 Follow up: Response: Pain is decreased jh6 Medication: 12:42 VIS not applicable for this client. 6 Outcome: 13:13 Discharge ordered by . jh7 13:30 Discharged to home ambulatory. 6 13:30 Condition: improved 13:30 Discharge instructions given to patient. 13:30 Patient left the ED. 6 Signatures: Cynthia Herrera, RN RN aa5 Rossana Rodgers Jennifer, RN RN jh6 Kalyn Pruett FNP FNP 7
--- NOTE | 2022-06-11 13:14 | EDPHYS ---
Physician Documentation [facility] Name: Noe Shields Age: 41 yrs Sex: Male : 1980 Arrival Date: 06/11/2022 Time: 11:55 Bed 17 Private MD: Ruth Linder ED Physician Mohsen uHang HPI: 06/11 12:20 This 41 yrs old Male presents to ER via Ambulatory with complaints of Back Pain. jh7 12:20 The patient presents with pain that is chronic, with no known mechanism of injury. The jh7 symptoms are located in the low back. Onset: The symptoms/episode began/occurred 2 day(s) ago. The pain does not radiate. Associated signs and symptoms: The patient has no apparent associated signs or symptoms. Pt presents for chronic low back pain with a flare up occurring 2 days ago. Reports that he had an MRI done 1 month ago showing multiple herniated disc. Requesting pain medicine.. Historical: - Allergies: 12:14 tramadol; aa5 - PMHx: 12:14 herniated disc in neck; Kidney stones; aa5 - Immunization history:: Adult Immunizations unknown. - Social history:: Smoking status: Patient denies any tobacco usage or history of. ROS: 12:20 Constitutional: Negative for fever, chills, and weight loss, Eyes: Negative for injury, jh7 pain, redness, and discharge, ENT: Negative for injury, pain, and discharge, Neck: Negative for injury, pain, and swelling, Cardiovascular: Negative for chest pain, palpitations, and edema, Respiratory: Negative for shortness of breath, cough, wheezing, and pleuritic chest pain, Abdomen/GI: Negative for abdominal pain, nausea, vomiting, diarrhea, and constipation, MS/Extremity: Negative for injury and deformity, Skin: Negative for injury, rash, and discoloration, Neuro: Negative for headache, weakness, numbness, tingling, and seizure. 12:20 Back: Positive for decreased range of motion, pain at rest, pain with movement, Negative for injury or acute deformity. 12:20 All other systems are negative. Exam: 12:20 Constitutional: This is a well developed, well nourished patient who is awake, alert, jh7 and in no acute distress. Head/Face: Normocephalic, atraumatic. Cardiovascular: Regular rate and rhythm with a normal S1 and S2. No gallops, murmurs, or rubs. Normal PMI, no JVD. No pulse deficits. Respiratory: Lungs have equal breath sounds bilaterally, clear to auscultation and percussion. No rales, rhonchi or wheezes noted. No increased work of breathing, no retractions or nasal flaring. Abdomen/GI: Soft, non-tender, with normal bowel sounds. No distension or tympany. No guarding or rebound. No evidence of tenderness throughout. Skin: Warm, dry with normal turgor. Normal color with no rashes, no lesions, and no evidence of cellulitis. MS/ Extremity: Pulses equal, no cyanosis. Neurovascular intact. Full, normal range of motion. Neuro: Awake and alert, GCS 15, oriented to person, place, time, and situation. Motor strength 5/5 in all extremities. Sensory grossly intact. Normal gait. 12:20 Back: pain, that is moderate, of the lumbar area, ROM is painful, with all movement, CVA tenderness, is absent. 14:49 Neuro: Orientation: is normal, Mentation: is normal, Memory: is normal, Motor: is jh7 normal, Sensation: is normal, Gait: is steady, at a normal pace. Vital Signs: 12:15 BP 138 / 88; Pulse 79; Resp 18 S; Temp 98.4(TE); Pulse Ox 98% on R/A; Weight 111.58 kg aa5 (R); Height 6 ft. 2 in. (187.96 cm) (R); 13:20 BP 127 / 82; Pulse 77; Resp 18; Pulse Ox 100% ; Pain 4/10; jh6 12:15 Body Mass Index 31.58 (111.58 kg, 187.96 cm) aa5 MDM: 12:10 Patient medically screened. jh7 13:40 Differential diagnosis: chronic back pain. Data reviewed: vital signs, nurses notes. 7 Data interpreted: Pulse oximetry: is 100 %. Interpretation: normal. Counseling: I had a detailed discussion with the patient and/or guardian regarding: the historical points, exam findings, and any diagnostic results supporting the discharge/admit diagnosis, the need for outpatient follow up, a neurosurgeon, a orthopedic surgeon, to return to the emergency department if symptoms worsen or persist or if there are any questions or concerns that arise at home. Administered Medications: 12:30 Drug: Dexamethasone 10 mg Route: IM; Site: right gluteus; [facility] 13:20 Follow up: Response: Pain is decreased [facility] 12:30 Drug: morphine 4 mg Route: IM; Site: right gluteus; 6 13:20 Follow up: Response: Pain is decreased [facility] Disposition Summary: 06/11/22 13:13 Discharge Ordered Location: Home [facility] Problem: new [facility] Symptoms: have improved [facility] Condition: Stable [facility] Diagnosis - Low back pain [facility] Followup: [facility] - With: Private Physician - When: 2 - 3 days - Reason: Recheck today's complaints Discharge Instructions: - Discharge Summary Sheet [facility] - Chronic Back Pain [facility] Forms: - Medication Reconciliation Form [facility] - Thank You Letter [facility] - Family Work Release [facility] Prescriptions: - Medrol (Sim) 4 mg Oral Tablets, Dose Pack - take 1 tablet by ORAL route as directed - follow package instructions; 1 [facility] packet; Refills: 0, Product Selection Permitted Signatures: Cynthia Herrera, RN RN aa5 Kalyn Brennan RN RN jh6 Klayn Pruett, SCRAP B[employer]CH MAKER S[employer]KER 7
[2022-06-13 20:49] VITALS: TEMP 98.4
[2022-06-13 20:55] VITALS: BP 127/82; O2SAT 100
== END 2022-06-11 13:30 | disposition home or self-care (01) ==
LOC: ER 11:54
DX: M54.50 Low back pain, unspecified (principal)
CPT/HCPCS: 96372; 99283; J1100

== ENCOUNTER 2022-07-04 19:51 | Emergency (ER) | payer OTHER ==
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
[2022-07-04] MEDS ORDERED: MORPHINE 4 MG/ML SYR ONE (22:11)
[2022-07-04] MEDS ORDERED: dexAMETHasone 10 MG/ML VIAL ONE (22:11)
[2022-07-04] MEDS ORDERED: KETOROLAC 30 MG/ML INJ ONE (22:11)
--- NOTE | 2022-07-04 22:48 | EDPHYS ---
Physician Documentation [facility] Name: Noe Shields Age: 41 yrs Sex: Male : 1980 Arrival Date: 07/04/2022 Time: 19:54 Bed 20 Private MD: ED Physician Stephie Leyva HPI: 07/04 22:00 This 41 yrs old Male presents to ER via Ambulatory with complaints of Neck Pain, <24hrs cp Old, Back Pain. 22:00 The patient or guardian complains of pain, that is chronic. Onset: The symptoms/episode cp began/occurred 9 month(s) ago. Associated signs and symptoms: Pertinent positives: headache, nausea, Paresthesias vomiting, weakness, of the right arm, radiation of pain, Pertinent negatives: fever. 22:00 The patient presents with pain that is chronic. cp 22:00 The symptoms are located in the low back. The pain radiates to the right leg. cp Associated signs and symptoms: Pertinent negatives: bowel or bladder incontinence, fever, denies new injury, denies saddle anesthesia. Patient reports he is awaiting insurance approval for surgery for herniated discs and appointment with pain management. Historical: - Allergies: 21:00 tramadol; 5 - PMHx: 21:00 herniated disc in neck; Kidney stones; [facility] - PSHx: 21:00 kidney stone removal; [facility] - Immunization history:: Adult Immunizations up to date. - Social history:: Smoking status: Patient denies any tobacco usage or history of. ROS: 22:05 Constitutional: Negative for body aches, chills, fever, poor PO intake. cp 22:05 Eyes: Negative for injury, pain, redness, and discharge. cp 22:05 ENT: Negative for drainage from ear(s), ear pain, sore throat, difficulty swallowing, difficulty handling secretions. 22:05 Neck: Positive for pain with movement, pain at rest, Negative for injury or acute deformity. 22:05 Cardiovascular: Negative for chest pain, edema, palpitations. 22:05 Respiratory: Negative for cough, shortness of breath, wheezing. 22:05 Abdomen/GI: Positive for nausea, vomiting, Negative for abdominal pain, diarrhea, constipation, bowel incontinence. 22:05 Back: Positive for pain at rest, pain with movement, of the low back. 22:05 : Negative for urinary symptoms, bladder incontinence. 22:05 Neuro: Negative for saddle anesthesia. 22:05 All other systems are negative. Exam: 22:10 Constitutional: The patient appears in no acute distress, alert, awake, non-toxic, well cp developed, well nourished, uncomfortable. 22:10 Head/Face: Normocephalic, atraumatic. cp 22:10 Eyes: Periorbital structures: appear normal, Conjunctiva: normal, no exudate, no injection, Sclera: no appreciated abnormality, Lids and lashes: appear normal. 22:10 ENT: External ear(s): are unremarkable, Nose: is normal, Mouth: Lips: moist, Oral mucosa: pink and intact, moist, Posterior pharynx: Airway: no evidence of obstruction, patent. 22:10 Neck: ROM/movement: pain, that is moderate, with any movement. 22:10 Chest/axilla: Inspection: normal, Palpation: is normal, no crepitus, no tenderness. 22:10 Cardiovascular: Rate: normal, Rhythm: regular. 22:10 Respiratory: the patient does not display signs of respiratory distress, Respirations: normal, no use of accessory muscles, no retractions, labored breathing, is not present, Breath sounds: are clear throughout, no decreased breath sounds, no stridor, no wheezing. 22:10 Abdomen/GI: Inspection: abdomen appears normal, Bowel sounds: active, all quadrants, Palpation: abdomen is soft and non-tender, in all quadrants, rebound tenderness, is not appreciated, involuntary guarding, is not appreciated. 22:10 Back: pain, that is moderate, of the low back, ROM is painful, with all movement. 22:10 Neuro: Orientation: to person, place \T\ time. Mentation: is normal, Motor: moves all fours, strength is normal, Sensation: no obvious gross deficits, Gait: is steady, Deep tendon reflexes are 2+ (normal) in the right tricep, right brachioradialis, right patellar, right Achilles, left bicep, left tricep, left brachioradialis, left patellar and left Achilles. Vital Signs: 20:56 BP 119 / 70; Pulse 87; Resp 18; Temp 98.6; Pulse Ox 99% on R/A; Weight 113.4 kg; Height jh5 6 ft. 2 in. (187.96 cm); Pain 10/10; 21:41 BP 142 / 82; Pulse 78; Resp 20; Pulse Ox 99% on R/A; Pain 10/10; kl 22:53 BP 136 / 72; Pulse 67; Resp 16; Pulse Ox 99% on R/A; kl 20:56 Body Mass Index 32.10 (113.40 kg, 187.96 cm) [facility] MDM: 21:05 Patient medically screened. cp 22:46 Data reviewed: vital signs, nurses notes. cp 22:46 Differential diagnosis: C-Spine Fracture Cervical Disc Herniation. cp 22:46 ED course: VSS. Pain improved with meds. Will discharge to home for continued cp monitoring. Administered Medications: 22:29 Drug: morphine 8 mg Route: IM; Site: right vastus lateralis; kl 22:48 Follow up: Response: No adverse reaction; Marked relief of symptoms kl 22:29 Drug: Ketorolac 30 mg Route: IM; Site: right vastus lateralis; kl 22:48 Follow up: Response: No adverse reaction; Marked relief of symptoms kl 22:29 Drug: Decadron (dexamethasone) 10 mg Route: IM; Site: left vastus lateralis; kl 22:48 Follow up: Response: No adverse reaction; Marked relief of symptoms kl Disposition Summary: 07/04/22 22:47 Discharge Ordered Location: Home cp Problem: chronic cp Symptoms: have improved cp Condition: Stable cp Diagnosis - Cervical disc disorder with radiculopathy, unspecified cervical region cp - Intervertebral disc disorders with radiculopathy, lumbar region cp Followup: cp - With: Private Physician - When: 1 - 2 days - Reason: Recheck today's complaints Discharge Instructions: - Discharge Summary Sheet cp - Cervical Radiculopathy cp - Herniated Disk cp - Lumbosacral Radiculopathy cp - Degenerative Disk Disease cp Forms: - Medication Reconciliation Form cp - Thank You Letter cp - Antibiotic Education cp - Prescription Opioid Use cp Prescriptions: - Cyclobenzaprine 10 mg Oral Tablet - take 1 tablet by ORAL route every 8 hours As needed; 20 tablet; Refills: 0, cp Product Selection Permitted - Medrol (Sim) 4 mg Oral Tablets, Dose Pack - take 1 tablet by ORAL route as directed - follow package instructions; 1 cp packet; Refills: 0, Product Selection Permitted Signatures: Ricarda Reid, RN RN Mohsen Perez PA PA cp Rees, Jessica RN RN jh5
--- NOTE | 2022-07-04 22:48 | ER ---
Nurse's Notes [facility] Name: Noe Shields Age: 41 yrs Sex: Male : 1980 Arrival Date: 07/04/2022 Time: 19:54 Bed 20 Private MD: Diagnosis: Cervical disc disorder with radiculopathy, unspecified cervical region;Intervertebral disc disorders with radiculopathy, lumbar region Presentation: 07/04 20:56 Chief complaint: Patient states: 9 months of pain, herniated discs, osteoarthritis, and jh5 nerve damage, and had an MRI a month ago. I am supposed to have surgery but insurance doesn't cover it, I go to emergency room every month. Vomiting, and nausea with headache because of lower back, down right leg, right arm. Coronavirus screen: Vaccine status: Patient reports being unvaccinated. Client denies travel out of the [place] in the last 14 days. Ebola Screen: Patient negative for fever greater than or equal to 101.5 degrees Fahrenheit, and additional compatible Ebola Virus Disease symptoms Patient denies exposure to infectious person. Patient denies travel to an Ebola-affected area in the 21 days before illness onset. Initial Sepsis Screen: Does the patient meet any 2 criteria? No. Patient's initial sepsis screen is negative. Does the patient have a suspected source of infection? No. Patient's initial sepsis screen is negative. Risk Assessment: Do you want to hurt yourself or someone else? Patient reports no desire to harm self or others. Onset of symptoms was October 2021. 20:56 Method Of Arrival: Ambulatory [facility] 20:56 Acuity: XIAO 3 jh5 22:31 Note pt ambulatory gait steady. kl Triage Assessment: 21:00 General: Appears in no apparent distress. uncomfortable, well groomed, well developed, jh5 well nourished, Behavior is calm, cooperative, appropriate for age, agitated, fussy, restless. Pain: Complains of pain in back, shoulders, neck. Historical: - Allergies: 21:00 tramadol; jh5 - PMHx: 21:00 herniated disc in neck; Kidney stones; jh5 - PSHx: 21:00 kidney stone removal; jh5 - Immunization history:: Adult Immunizations up to date. - Social history:: Smoking status: Patient denies any tobacco usage or history of. Screenin:41 Abuse screen: Denies threats or abuse. Nutritional screening: No deficits noted. kl Tuberculosis screening: No symptoms or risk factors identified. Fall Risk No fall in past 12 months (0 pts). Secondary diagnosis (15 points) impaired mobility, No IV (0 pts). Ambulatory Aid- None/Bed Rest/Nurse Assist (0 pts). Gait- Normal/Bed Rest/Wheelchair (0 pts) Mental Status- Oriented to own ability (0 pts). Assessment: 21:40 General: Appears uncomfortable, well groomed, well developed, Behavior is cooperative. kl Pain: Complains of pain in back of neck, posterior chest and back Pain currently is 10 out of 10 on a pain scale. Neuro: Level of Consciousness is awake, alert, obeys commands, Oriented to person, place, time, situation, Gait is steady. Cardiovascular: No deficits noted. Respiratory: No deficits noted. GI: No deficits noted. No signs and/or symptoms were reported involving the gastrointestinal system. : No deficits noted. No signs and/or symptoms were reported regarding the genitourinary system. EENT: No deficits noted. No signs and/or symptoms were reported regarding the EENT system. Derm: No deficits noted. No signs and/or symptoms reported regarding the dermatologic system. Musculoskeletal: Reports pain in back of neck, posterior chest and back since 9 months. Vital Signs: 20:56 BP 119 / 70; Pulse 87; Resp 18; Temp 98.6; Pulse Ox 99% on R/A; Weight 113.4 kg; Height [facility] 6 ft. 2 in. (187.96 cm); Pain 10/10; 21:41 BP 142 / 82; Pulse 78; Resp 20; Pulse Ox 99% on R/A; Pain 10/10; kl 22:53 BP 136 / 72; Pulse 67; Resp 16; Pulse Ox 99% on R/A; kl 20:56 Body Mass Index 32.10 (113.40 kg, 187.96 cm) [facility] ED Course: 19:54 Patient arrived in ED. bp1 20:55 Mohsen Perry PA is PHCP. cp 20:55 Stephie Leyva MD is Attending Physician. cp 21:00 Triage completed. [facility] 21:00 Arm band placed on right wrist. [facility] 22:54 Patient has correct armband on for positive identification. kl 22:54 No provider procedures requiring assistance completed. Patient did not have IV access kl during this emergency room visit. Administered Medications: 22:29 Drug: morphine 8 mg Route: IM; Site: right vastus lateralis; kl 22:48 Follow up: Response: No adverse reaction; Marked relief of symptoms kl 22:29 Drug: Ketorolac 30 mg Route: IM; Site: right vastus lateralis; kl 22:48 Follow up: Response: No adverse reaction; Marked relief of symptoms kl 22:29 Drug: Decadron (dexamethasone) 10 mg Route: IM; Site: left vastus lateralis; kl 22:48 Follow up: Response: No adverse reaction; Marked relief of symptoms kl Medication: 21:42 VIS not applicable for this client. kl Outcome: 22:47 Discharge ordered by . mel 22:54 Discharged to home ambulatory, with family. kl 22:54 Condition: improved 22:54 Discharge instructions given to patient, Instructed on discharge instructions, follow up and referral plans. medication usage, Demonstrated understanding of instructions, follow-up care, medications, Prescriptions given X 2. 22:54 Patient left the ED. kl Signatures: Ricarda Reid, RN RN Mohsen Perez PA PA cp [place], Brittany bp1 Rees, Jessica, RN RN jh5
[2022-07-04 23:49] VITALS: TEMP 98.6; O2SAT 99
[2022-07-04 23:52] VITALS: BP 136/72
== END 2022-07-04 22:54 | disposition home or self-care (01) ==
LOC: ER 19:51
DX: M50.10 Cervical disc disorder with radiculopathy, unspecified cervical region (principal); M51.16 Intervertebral disc disorders with radiculopathy, lumbar region; Z88.5 Allergy status to narcotic agent; Z87.442 Personal history of urinary calculi
CPT/HCPCS: 96372; 99283; J1100

== ENCOUNTER 2022-09-05 07:27 | Emergency (ER) | payer OTHER ==
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
[2022-09-05] MEDS ORDERED: dexAMETHasone 10 MG/ML VIAL ONE (07:48)
[2022-09-05 08:32] LABS: SARS-COV-2 RT PCR NEGATIVE (NEGATIVE)
[2022-09-05] MEDS ORDERED: KETOROLAC 30 MG/ML INJ ONE (09:07)
--- NOTE | 2022-09-05 09:25 | EDPHYS ---
Physician Documentation [facility] Name: Noe Shields Age: 41 yrs Sex: Male : 1980 Arrival Date: 09/05/2022 Time: 07:31 Bed 18 Private MD: ED Physician Silvio Hutchins HPI: 09/05 07:43 This 41 yrs old Male presents to ER via Unassigned with complaints of Sore Throat. m 07:43 The patient presents with sore throat. Onset: The symptoms/episode began/occurred jmm gradually, 2 day(s) ago. Modifying factors: The symptoms are alleviated by nothing, the symptoms are aggravated by nothing. Associated signs and symptoms: Pertinent positives: cough. This is a 41 year old male that presents to the ED with complaints of sore throat beginning 2 days ago. Patient also complains of body aches. . 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 - Social history:: Smoking status: Patient denies any tobacco usage or history of. ROS: 07:43 Constitutional: Positive for body aches. jmm 07:43 ENT: Positive for sore throat. 07:43 All other systems are negative. Exam: 07:38 ECG was reviewed by the Attending Physician. jmm 07:43 Constitutional: This is a well developed, well nourished patient who is awake, alert, jmm and in no acute distress. Head/Face: atraumatic. Eyes: EOMI, no conjunctival erythema appreciated Neck: Trachea midline, Supple Chest/axilla: Normal chest wall appearance and motion. Cardiovascular: Regular rate and rhythm. No edema appreciated 07:43 Back: Normal ROM Skin: General appearance color normal MS/ Extremity: Moves all extremities, no obvious deformities appreciated, no edema noted to the lower extremities Neuro: Awake and alert Psych: Behavior is normal, Mood is normal, Patient is cooperative and pleasant 07:43 ENT: mild posterior pharynx erythema, no uvular shift, no seating captain. Vital Signs: 07:37 BP 113 / 73; Pulse 73; Resp 17; Temp 98.0; Pulse Ox 97% on R/A; Weight 108.86 kg; ll1 Height 6 ft. 2 in. (187.96 cm); Pain 8/10; 09:36 BP 116 / 69; Pulse 72; Resp 16; Pulse Ox 97% on R/A; ll1 07:37 Body Mass Index 30.81 (108.86 kg, 187.96 cm) ll1 MDM: 07:37 Patient medically screened. [facility] 08:16 Data reviewed: vital signs, nurses notes. [facility] 09:11 Counseling: I had a detailed discussion with the patient and/or guardian regarding: the [facility] historical points, exam findings, and any diagnostic results supporting the discharge/admit diagnosis, lab results, the need for outpatient follow up, to return to the emergency department if symptoms worsen or persist or if there are any questions or concerns that arise at home. 09/05 07:38 Order name: Strep; Complete Time: 08:13 [facility] 09/05 07:38 Order name: COVID-19/FLU A+B; Complete Time: 09:11 [facility] 09/05 08:11 Order name: Throat Culture EDMS EC:38 Rate is 68 beats/min. Rhythm is regular. QRS Fults is Normal. VA interval is normal. QRS jmm interval is normal. QT interval is normal. No Q waves. T waves are Normal. No ST changes noted. Reviewed by me. Administered Medications: 07:59 Drug: Decadron (dexamethasone) 10 mg Route: IM; Site: left gluteus; ll1 09:37 Follow up: Response: No adverse reaction; RASS: Alert and Calm (0) ll1 Disposition: 10:20 Attestation: The patient's history, exam findings, diagnostics, and a summary of any [facility] interventions or procedures was reviewed in detail with Joey ANAYA. Disposition Summary: 09/05/22 09:24 Discharge Ordered Location: Home [facility] Condition: Stable [facility] Diagnosis - Acute pharyngitis, unspecified [facility] Followup: [facility] - With: Private Physician - When: 2 - 3 days - Reason: Recheck today's complaints, Continuance of care, Re-evaluation by your physician Discharge Instructions: - Discharge Summary Sheet [facility] - Pharyngitis [facility] Forms: - Medication Reconciliation Form [facility] - Thank You Letter [facility] - Work release form [facility] - Antibiotic Education [facility] - Prescription Opioid Use [facility] Prescriptions: - Zithromax Z-Sim 250 mg Oral Tablet - take 1 tablet by ORAL route as directed for 5 days Day 1 - take two (2) tablets [facility] one time. Day 2, 3, 4 , 5 take one (1) tablet once daily.; 6 tablet; Refills: 0, Product Selection Permitted Signatures: Dispatcher [employer] EDJoey Rader PA PA jmm Lewis, Lynsay, RN RN ll1 Silvio Hutchins MD MD [id number]
--- NOTE | 2022-09-05 09:25 | ER ---
Nurse's Notes [facility] Name: Noe Shields Age: 41 yrs Sex: Male : 1980 Arrival Date: 09/05/2022 Time: 07:31 Bed 18 Private MD: Diagnosis: Acute pharyngitis, unspecified Presentation: 09/05 07:37 Chief complaint: Patient states: Sore throat, subjective fever, fatigue, weakness for ll1 3-4 days. Son was ill last week with possible viral illness. Coronavirus screen: Vaccine status: Patient reports being unvaccinated. Client denies travel out of the [place] in the last 14 days. chills, fatigue, fever, muscle pain, sore throat, Client presents with at least one sign or symptom that may indicate coronavirus-19. Standard/surgical mask placed on the client. Ebola Screen: Patient denies travel to an Ebola-affected area in the 21 days before illness onset. Initial Sepsis Screen: Does the patient meet any 2 criteria? No. Patient's initial sepsis screen is negative. Does the patient have a suspected source of infection? Yes: Other: sore throat. Risk Assessment: Do you want to hurt yourself or someone else? Patient reports no desire to harm self or others. Onset of symptoms was September 02, 2022. 07:37 Method Of Arrival: Ambulatory 1 07:37 Acuity: XIAO 4 ll1 Triage Assessment: 07:37 General: Appears uncomfortable, ill, Behavior is calm, cooperative, appropriate for ll1 age. General: generalized weakness, fatigue, and sore throat for 3 days. Pain: Complains of pain in throat Pain currently is 8 out of 10 on a pain scale. Quality of pain is described as aching, Pain began 2-3 days ago. EENT: Throat is reddened has enlarged tonsils bilaterally Reports pain when swallowing. Neuro: No deficits noted. Cardiovascular: No deficits noted. Respiratory: Denies cough. 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 - Social history:: Smoking status: Patient denies any tobacco usage or history of. Screenin:52 [facility] ED Fall Risk Assessment (Adult) Score/Fall Risk Level 0 - 2 = Low Risk ll1 Oriented to surroundings, Maintained a safe environment, Hourly rounding (assess needs \T\ fall precautionary measures) done. Abuse screen: Denies threats or abuse. Nutritional screening: No deficits noted. Tuberculosis screening: No symptoms or risk factors identified. Assessment: 07:53 Respiratory: Airway is patent Respiratory effort is even, unlabored, Breath sounds are ll1 clear bilaterally. 08:45 Reassessment: No changes from previously documented assessment. Patient and/or family ll1 updated on plan of care and expected duration. Pain level reassessed. Patient is alert, oriented x 3, equal unlabored respirations, skin warm/dry/pink. 09:37 Reassessment: No changes from previously documented assessment. Patient and/or family ll1 updated on plan of care and expected duration. Pain level reassessed. Patient is alert, oriented x 3, equal unlabored respirations, skin warm/dry/pink. Vital Signs: 07:37 BP 113 / 73; Pulse 73; Resp 17; Temp 98.0; Pulse Ox 97% on R/A; Weight 108.86 kg; ll1 Height 6 ft. 2 in. (187.96 cm); Pain 8/10; 09:36 BP 116 / 69; Pulse 72; Resp 16; Pulse Ox 97% on R/A; ll1 07:37 Body Mass Index 30.81 (108.86 kg, 187.96 cm) ll1 ED Course: 07:31 Patient arrived in ED. rg4 07:31 [facility] Correa [facility] jm 07:31 Silvio Hutchins MD is Attending Physician. jmm 07:35 Arm band placed on Patient placed in an exam room, on a stretcher. ll1 07:45 COVID-19/FLU A+B Sent. as6 07:45 Strep Sent. as6 07:48 Jovany Reid, GERARDO is Primary Nurse. ll1 07:52 Triage completed. ll1 07:53 Patient has correct armband on for positive identification. Bed in low position. Call ll1 light in reach. Cardiac monitoring not applicable on this patient. 09:37 No provider procedures requiring assistance completed. Patient did not have IV access ll1 during this emergency room visit. Administered Medications: 07:59 Drug: Decadron (dexamethasone) 10 mg Route: IM; Site: left gluteus; 1 09:37 Follow up: Response: No adverse reaction; RASS: Alert and Calm (0) 1 Medication: 07:53 VIS not applicable for this client. ll1 Outcome: 09:24 Discharge ordered by . tatum 09:37 Discharged to home ambulatory. 1 09:37 Condition: stable 09:37 Discharge instructions given to patient, Instructed on discharge instructions, follow up and referral plans. medication usage, Demonstrated understanding of instructions, follow-up care, medications, Prescriptions given X 1. 09:38 Patient left the ED. 1 Signatures: Joey Correa PA PA jmm Garcia, Rubi rg4 Jovany Reid RN RN ll1 Piotr Guerra RN RN as6
[2022-09-05 09:43] VITALS: TEMP 98; O2SAT 97
[2022-09-05 09:44] VITALS: BP 116/69
== END 2022-09-05 09:38 | disposition home or self-care (01) ==
LOC: ER 07:27
DX: J02.9 Acute pharyngitis, unspecified (principal); R05.9 Cough, unspecified; Z20.822 Contact with and (suspected) exposure to COVID-19; Z88.5 Allergy status to narcotic agent
CPT/HCPCS: 87070; 87081; 0240U; 96372; 99283; J1100

== ENCOUNTER 2022-11-04 14:28 | Emergency (ER) | payer OTHER ==
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
[2022-11-04] MEDS ORDERED: predniSONE 20 MG TAB ONE (15:11)
[2022-11-04] MEDS ORDERED: FAMOTIDINE 20 MG TAB ONE (15:11)
[2022-11-04] MEDS ORDERED: KETOROLAC 30 MG/ML INJ ONE (15:12)
--- NOTE | 2022-11-04 15:18 | EDPHYS ---
Physician Documentation [facility] Name: Noe Shields Age: 42 yrs Sex: Male : 1980 Arrival Date: 11/04/2022 Time: 14:31 Bed IW6 Private MD: ED Physician Mohsen Huang HPI: 11/04 15:22 This 42 yrs old Male presents to ER via Ambulatory with complaints of Back Pain, Lupus snw Flare Up. 15:22 The patient presents with pain that is chronic, with no known mechanism of injury. The snw symptoms are located in the low back, lower ext tingling, pain. Onset: The symptoms/episode began/occurred 1 year(s) ago, and became persistent. The pain does not radiate. Severity of symptoms: At their worst the symptoms were moderate, severe. The patient has experienced similar episodes in the past, multiple times. awaiting injections and final diagnosis. Historical: - Allergies: 15:02 tramadol; jl7 - Home Meds: 15:02 Lyrica Oral [Active]; tizanidine oral [Active]; jl7 - PMHx: 15:02 herniated disc in neck; Kidney stones; RA; Chronic pain; jl7 - PSHx: 15:02 kidney stone removal; jl7 - Immunization history:: Adult Immunizations unknown. ROS: 15:24 Eyes: Negative for injury, pain, redness, and discharge, ENT: Negative for injury, snw pain, and discharge, Neck: Negative for injury, pain, and swelling, Cardiovascular: Negative for chest pain, palpitations, and edema, Respiratory: Negative for shortness of breath, cough, wheezing, and pleuritic chest pain, Abdomen/GI: Negative for abdominal pain, nausea, vomiting, diarrhea, and constipation, : Negative for injury, bleeding, discharge, and swelling, MS/Extremity: Negative for injury and deformity, Skin: Negative for injury, rash, and discoloration. 15:24 Constitutional: Positive for body aches, fatigue, malaise. 15:24 Neuro: Positive for weakness. 15:24 Psych: Positive for chronic pain. Exam: 15:19 Constitutional: This is a well developed, well nourished patient who is awake, alert, snw and in no acute distress. Head/Face: Normocephalic, atraumatic. Eyes: Pupils equal round and reactive to light, extra-ocular motions intact. Lids and lashes normal. Conjunctiva and sclera are non-icteric and not injected. Cornea within normal limits. Periorbital areas with no swelling, redness, or edema. ENT: Nares patent. No nasal discharge, no septal abnormalities noted. Tympanic membranes are normal and external auditory canals are clear. Oropharynx with no redness, swelling, or masses, exudates, or evidence of obstruction, uvula midline. Mucous membranes moist. Neck: Trachea midline, no thyromegaly or masses palpated, and no cervical lymphadenopathy. Supple, full range of motion without nuchal rigidity, or vertebral point tenderness. No Meningismus. Chest/axilla: Normal chest wall appearance and motion. Nontender with no deformity. No lesions are appreciated. Cardiovascular: Regular rate and rhythm with a normal S1 and S2. No gallops, murmurs, or rubs. Normal PMI, no JVD. No pulse deficits. Respiratory: Lungs have equal breath sounds bilaterally, clear to auscultation and percussion. No rales, rhonchi or wheezes noted. No increased work of breathing, no retractions or nasal flaring. Abdomen/GI: Soft, non-tender, with normal bowel sounds. No distension or tympany. No guarding or rebound. No evidence of tenderness throughout. Back: No spinal tenderness. No costovertebral tenderness. Full range of motion. Skin: Warm, dry with normal turgor. Normal color with no rashes, no lesions, and no evidence of cellulitis. 15:19 Musculoskeletal/extremity: Exam is negative for acute changes. 15:19 Neuro: Mentation: is normal, Motor: is normal, seizure activity, is not displayed by the patient. Vital Signs: 15:01 BP 116 / 87; Pulse 94; Resp 15; Temp 98.8; Pulse Ox 98% on R/A; jl7 MDM: 15:11 Patient medically screened. allison 15:20 Differential diagnosis: arthritis, Fatigue Osteoarthritis ruptured disc, sprain. Data snw reviewed: vital signs, nurses notes. Counseling: I had a detailed discussion with the patient and/or guardian regarding: the historical points, exam findings, and any diagnostic results supporting the discharge/admit diagnosis, the need for outpatient follow up, for definitive care, to return to the emergency department if symptoms worsen or persist or if there are any questions or concerns that arise at home, unable to give narcotics in ED for chronic pain. Special discussion: Based on the history and exam findings, there is no indication for further emergent testing or inpatient evaluation. I discussed with the patient/guardian the need to see the paint supervisor for further evaluation of the symptoms. I discussed with the patient/guardian the need to see the primary care provider for further evaluation of the symptoms. I discussed with the patient/guardian the need to see the clay grinder for further evaluation of the symptoms. Administered Medications: 15:15 Drug: Pepcid (famotidine) 20 mg Route: PO; jl7 15:15 Drug: predniSONE 40 mg Route: PO; jl7 15:15 Drug: Ketorolac 30 mg Route: IM; Site: right deltoid; jl7 Disposition Summary: 11/04/22 15:18 Discharge Ordered Location: Home snw Condition: Stable snw Diagnosis - Chronic pain, not elsewhere classified snw - Polyneuropathy, unspecified snw Followup: snw - With: Emergency Department - When: As needed - Reason: Worsening of condition Followup: snw - With: Private Physician - When: 2 - 3 days - Reason: Recheck today's complaints, Continuance of care, Re-evaluation by your physician Discharge Instructions: - Discharge Summary Sheet snw - Chronic Pain, Adult snw - Peripheral Neuropathy snw Forms: - Medication Reconciliation Form snw - Thank You Letter snw - Antibiotic Education snw - Prescription Opioid Use snw Prescriptions: - Prednisone 20 mg Oral Tablet - take 2 tablets by ORAL route once daily for 5 days; 10 tablet; Refills: 0, snw Product Selection Permitted - Pepcid 20 mg Oral Tablet - take 1 tablet by ORAL route once daily; 20 tablet; Refills: 0, Product snw Selection Permitted Signatures: Mohsen Huang MD MD cha Waters, Shelly, LIGHTING ENGINEER-C LIGHTING ENGINEER-Nicolew Shelia White RN RN jl7
--- NOTE | 2022-11-04 15:18 | ER ---
Nurse's Notes [facility] Name: Noe Shields Age: 42 yrs Sex: Male : 1980 Arrival Date: 11/04/2022 Time: 14:31 Bed IW6 Private MD: Diagnosis: Chronic pain, not elsewhere classified;Polyneuropathy, unspecified Presentation: 11/04 15:01 Chief complaint: Patient states: Neck and back pain x 3 days, in process of being jl7 diagnosed with Lupus. Coronavirus screen: At this time, the client does not indicate any symptoms associated with coronavirus-19. Ebola Screen: No symptoms or risks identified at this time. Initial Sepsis Screen: Does the patient meet any 2 criteria? No. Patient's initial sepsis screen is negative. Does the patient have a suspected source of infection? No. Patient's initial sepsis screen is negative. Risk Assessment: Do you want to hurt yourself or someone else? Patient reports no desire to harm self or others. Onset of symptoms was November 02, 2022. 15:01 Method Of Arrival: Ambulatory [facility] 15:01 Acuity: XIAO 3 jl7 Historical: - Allergies: 15:02 tramadol; jl7 - Home Meds: 15:02 Lyrica Oral [Active]; tizanidine oral [Active]; jl7 - PMHx: 15:02 herniated disc in neck; Kidney stones; RA; Chronic pain; jl7 - PSHx: 15:02 kidney stone removal; jl7 - Immunization history:: Adult Immunizations unknown. Assessment: 15:04 Reassessment: SHERYL Stein in triage assessing pt. [facility] 15:50 Reassessment: While administering ordered medications pt states "I usually get a dose jl7 of morphine so I can go home and get some rest." Informed pt I will let the provider know his request. ERP notified of request, no new orders received. Pt requesting to speak to attending MD, Dr. Huang notified and pt updated that Dr. Huang is aware he wants to see him and he will be out as soon as he can. Pt appears agitated and left ED with paperwork at this time. Vital Signs: 15:01 BP 116 / 87; Pulse 94; Resp 15; Temp 98.8; Pulse Ox 98% on R/A; jl7 ED Course: 14:31 Patient arrived in ED. rg4 14:40 Sarita Daniels FNP-C [facility] snw 14:40 Mohsen Huang MD is Attending Physician. snw 15:02 Triage completed. jl7 15:02 Arm band placed on right wrist. Patient placed in waiting room, Patient notified of jl7 wait time. 15:50 No provider procedures requiring assistance completed. Patient did not have IV access jl7 during this emergency room visit. Administered Medications: 15:15 Drug: Pepcid (famotidine) 20 mg Route: PO; jl7 15:15 Drug: predniSONE 40 mg Route: PO; jl7 15:15 Drug: Ketorolac 30 mg Route: IM; Site: right deltoid; jl7 Outcome: 15:18 Discharge ordered by . snw 15:51 Discharged to home ambulatory. jl7 15:51 Condition: stable 15:51 Discharge instructions given to patient, Instructed on discharge instructions, follow up and referral plans. medication usage, Demonstrated understanding of instructions, follow-up care, medications, Prescriptions given X 2. 15:51 Patient left the ED. jl7 Signatures: Sarita Daniels FNP-C FNP-Rosalie Ernandez rg4 Shelia White, RN RN jl7
[2022-11-04 16:46] VITALS: BP 116/87; TEMP 98.8; O2SAT 98
== END 2022-11-04 15:51 | disposition home or self-care (01) ==
LOC: ER 14:28
DX: G89.29 Other chronic pain (principal); G62.9 Polyneuropathy, unspecified; Z87.442 Personal history of urinary calculi; Z88.5 Allergy status to narcotic agent
CPT/HCPCS: 96372; 99283; J7512

== ENCOUNTER 2022-11-26 14:31 | Emergency (ER) | payer OTHER ==
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
[2022-11-26] MEDS ORDERED: NA CHLORIDE 0.9% 1,000 ML ONE (15:21)
[2022-11-26 16:06] LABS: Absolute Lymphocytes (CBC) 4.1 K/uL (0.7-4.9); Hematocrit 41.3 % (39.6-49.0); Lymphocytes % 39.5 % (15.3-44.8); MCV 91.4 fL (80-100); MPV 9.5 fL (7.6-11.3); RBC Red Blood Cell Count 4.52 M/uL (4.33-5.43)
--- NOTE | 2022-11-26 16:19 | RAD REPORT ---
EXAM DESCRIPTION: [place] Single View11/26/2022 4:06 pm CLINICAL HISTORY: Chest pain COMPARISON: none FINDINGS: The lungs appear clear of acute infiltrate. The heart is normal size IMPRESSION: No acute abnormalities displayed
[2022-11-26 16:36] LABS: Potassium 3.7 mmol/L (3.5-5.1); Troponin High Sensitivity 5.2 pg/mL (<58.9)
--- NOTE | 2022-11-26 16:58 | ER ---
Nurse's Notes [facility] Name: Noe Shields Age: 42 yrs Sex: Male : 1980 Arrival Date: 11/26/2022 Time: 14:47 Bed 11 Private MD: Diagnosis: Essential (primary) hypertension;Chest pain, unspecified Presentation: 11/26 14:51 Chief complaint: Left sided chest pain that radiates to left arm and neck x 3 hours. hb Coronavirus screen: At this time, the client does not indicate any symptoms associated with coronavirus-19. Ebola Screen: No symptoms or risks identified at this time. Initial Sepsis Screen: Does the patient meet any 2 criteria? No. Patient's initial sepsis screen is negative. Does the patient have a suspected source of infection? No. Patient's initial sepsis screen is negative. Risk Assessment: Do you want to hurt yourself or someone else? Patient reports no desire to harm self or others. Onset of symptoms was November 26, 2022. 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 - Social history:: Smoking status: Patient reports the use of cigarette tobacco products. Screenin:10 [facility] ED Fall Risk Assessment (Adult) History of falling in the last 3 months, nj1 including since admission No falls in past 3 months (0 pts) Confusion or Disorientation No (0 pts) Intoxicated or Sedated No (0 pts) Impaired Gait No (0 pts) Mobility Assist Device Used No (0 pt) Altered Elimination No (0 pt) Score/Fall Risk Level 0 - 2 = Low Risk Oriented to surroundings, Maintained a safe environment, Assessed \T\ reinforced patient's understanding of fall precautions, Hourly rounding (assess needs \T\ fall precautionary measures) done. Abuse screen: Denies threats or abuse. Denies injuries from another. 16:02 Nutritional screening: No deficits noted. Tuberculosis screening: No symptoms or risk nj1 factors identified. Assessment: 15:10 General: Appears in no apparent distress. comfortable, Behavior is calm, cooperative, nj1 appropriate for age. Pain: Complains of pain in chest Pain currently is 8 out of 10 on a pain scale. Pain began 1 day ago. Neuro: No deficits noted. Level of Consciousness is awake, alert, obeys commands, Oriented to person, place, time, situation. Cardiovascular: Chest pain is described as is located in left episodes are intermittent. Respiratory: No deficits noted. Airway is patent Respiratory effort is even, unlabored, Respiratory pattern is regular. 15:50 Pain: Complains of pain in chest Pain does not radiate. Pain currently is 8 out of 10 nj1 on a pain scale. Quality of pain is described as Tight. 15:50 Reassessment: Patient appears in no apparent distress at this time. Patient and/or nj1 family updated on plan of care and expected duration. Pain level reassessed. Patient is alert, oriented x 3, equal unlabored respirations, skin warm/dry/pink. Vital Signs: 14:51 BP 147 / 85; Pulse 78; Resp 16; Temp 97.9; Pulse Ox 100% on R/A; Weight 113.4 kg; hb Height 6 ft. 2 in. ; Pain 7/10; 15:50 BP 127 / 80; Pulse 87; Resp 16; Pulse Ox 99% on R/A; Pain 8/10; nj1 14:51 Body Mass Index 32.10 (113.40 kg, 187.96 cm) hb 14:51 Pain Scale: Adult hb 15:50 Pain Scale: Adult nj1 ED Course: 14:47 Patient arrived in ED. rg4 14:50 Mario Diaz MD is Attending Physician. bs3 14:53 Triage completed. hb 14:53 Arm band placed on. hb 14:54 Chelsie Castellano, GERARDO is Primary Nurse. nj1 15:10 Patient has correct armband on for positive identification. Placed in gown. Bed in low nj1 position. Call light in reach. 15:10 Client placed on continuous cardiac and pulse oximetry monitoring. NIBP monitoring nj1 applied. ekg monitor on. 15:50 Inserted saline lock: 20 gauge in right antecubital area, using aseptic technique. nj1 Blood collected. Missed attempt(s): 20 gauge in right forearm. Bleeding controlled, band aid applied, catheter tip intact. Patient maintains SpO2 saturation greater than 95% on room air. 16:07 XRAY Chest (1 view) In Process Unspecified. EDMS Administered Medications: 15:50 Drug: NS 0.9% IV 1000 ml Route: IV; Rate: 1 bolus; Site: right antecubital; nj1 Outcome: 16:58 Discharge ordered by . bs3 Signatures: Dispatcher [employer] EDMS Stephanie Lanza RN RN Rosalie Pedraza rg4 Mario Diaz MD MD bs3 Chelsie Castellano RN RN nj1
--- NOTE | 2022-11-26 16:59 | EDPHYS ---
Physician Documentation [facility] Name: Noe Shields Age: 42 yrs Sex: Male : 1980 Arrival Date: 11/26/2022 Time: 14:47 Bed 11 Private MD: ED Physician Mario Diaz HPI: 11/26 15:28 This 42 yrs old Male presents to ER via Ambulatory with complaints of High bs3 Blood Pressure, Chest Pain. 15:28 42-year-old history of chronic pain, kidney stones, lupus sent in from his pain bs3 medicine doctors for elevated blood pressure per the patient he went for his normal checkup and his blood pressure was elevated and they told him he needed to be evaluated he notes that he feels general malaise and has a vague chest discomfort that started early this morning. He denies any shortness of breath he denies any nausea or vomiting he notes a burning sensation it is not ripping or tearing he does not have associated numbness tingling or weakness in any of his extremities he feels like he has had this pain chronically. He tried to see his primary care doctor and get a referral to cardiology instead of coming in but they would not see him today denies any leg swelling recent travel history of PE or DVT. Historical: - Allergies: 14:53 tramadol; hb - Home Meds: 16:05 pregabalin 200 mg oral capsule 1 cap 3 times per day [Active]; tizanidine 4 mg oral nj1 tablet [Active]; ibuprofen 600 mg Oral tablet [Active]; Acetaminophen-Codeine Oral [Active]; diclofenac sodium topical [Active]; - PMHx: 14:53 Chronic pain; herniated disc in neck; Kidney stones; RA; hb - PSHx: 14:53 kidney stone removal; hb - Immunization history:: Adult Immunizations up to date. - Social history:: Smoking status: Patient reports the use of cigarette tobacco products. ROS: 15:28 Constitutional: Negative for fever, chills bs3 15:28 All other systems are negative. Exam: 15:28 Constitutional: This is a well developed, well nourished patient who is awake, alert, bs3 and in no acute distress. Head/Face: Normocephalic, atraumatic. Eyes: Pupils equal round and reactive to light, extra-ocular motions intact. Lids and lashes normal. ENT: mmm, no posterior phyarngeal erythema Neck: Trachea midline, no thyromegaly, no neck stiffness Chest/axilla: Normal chest wall appearance and motion. Nontender with no deformity. No lesions are appreciated. Cardiovascular: Regular rate and rhythm with a normal S1 and S2. symmetric pulses in upper extremities, Respiratory: Lungs have equal breath sounds bilaterally, clear to auscultation, no respiratory distress Skin: Warm, dry with normal turgor. Normal color with no rashes, no lesions, and no evidence of cellulitis. MS/ Extremity: Pulses equal, no cyanosis. Neurovascular intact. Full, normal range of motion. Neuro: Awake and alert, GCS 15, oriented to person, place, time, and situation. Cranial nerves II-XII grossly intact. Motor strength 5/5 in all extremities. Sensory grossly intact. Sensation is intact to light touch and sharp touch in bilateral extremities 15:28 Normal sinus rhythm at [address] elevations or depressions QTc 448 bs3 Vital Signs: 14:51 BP 147 / 85; Pulse 78; Resp 16; Temp 97.9; Pulse Ox 100% on R/A; Weight 113.4 kg; hb Height 6 ft. 2 in. ; Pain 7/10; 15:50 BP 127 / 80; Pulse 87; Resp 16; Pulse Ox 99% on R/A; Pain 8/10; nj1 14:51 Body Mass Index 32.10 (113.40 kg, 187.96 cm) hb 14:51 Pain Scale: Adult hb 15:50 Pain Scale: Adult nj1 MDM: 14:50 Patient medically screened. bs3 15:28 Differential diagnosis: hypertensive crisis, Possible pulmonary embolism but his vitals bs3 are notable for normal pulse normal respiratory rate normal oxygen saturation he has no leg swelling to suggest a DVT no history of PE very low risk, doubt dissection given his history and physical exam possible musculoskeletal possible gastric given the burning sensation that he describes given the duration of symptoms greater than 6 hours 1 troponin will rule out acute coronary syndrome his EKG is normal. Data reviewed: vital signs, nurses notes. 16:24 Independent interpretation of the following test(s) in the Emergency Department X-Ray: bs3 My interpretation is No acute cardiopulmonary disease. 16:55 Consideration of Admission/Observation Escalation of care including bs3 admission/observation considered. ED course: Work-up nondiagnostic blood pressure improved without significant intervention given duration of chest pain greater than 6 hours a single troponin rules out ACS Heart Score of 1. ED course: advised cardiology f/u for htn and chest pain. 11/26 15:09 Order name: EKG; Complete Time: 15:09 bs3 11/26 15:09 Order name: Cardiac monitoring; Complete Time: 15:59 bs3 11/26 15:09 Order name: EKG - Nurse/Tech; Complete Time: 15:59 bs3 11/26 15:09 Order name: IV Saline Lock; Complete Time: 15:59 bs3 11/26 15:09 Order name: Labs collected and sent; Complete Time: 15:59 bs3 11/26 15:09 Order name: O2 Per Protocol; Complete Time: 15:59 bs3 11/26 15:09 Order name: O2 Sat Monitoring; Complete Time: 15:59 bs3 11/26 15:09 Order name: CBC with Diff; Complete Time: 16:23 bs3 11/26 15:09 Order name: XRAY Chest (1 view); Complete Time: 16:23 bs3 11/26 15:09 Order name: Basic Metabolic Panel; Complete Time: 16:55 bs3 11/26 15:09 Order name: Troponin HS; Complete Time: 16:55 bs3 Administered Medications: 15:50 Drug: NS 0.9% IV 1000 ml Route: IV; Rate: 1 bolus; Site: right antecubital; nj1 Disposition Summary: 11/26/22 16:58 Discharge Ordered Location: Home bs3 Problem: an acute exacerbation bs3 Symptoms: have improved bs3 Condition: Stable bs3 Diagnosis - Essential (primary) hypertension bs3 - Chest pain, unspecified bs3 Followup: bs3 - With: Private Physician - When: 2 - 3 days - Reason: Recheck today's complaints Forms: - Medication Reconciliation Form bs3 - Thank You Letter bs3 - Antibiotic Education bs3 - Prescription Opioid Use bs3 Signatures: Dispatcher [employer] EDMS Stephanie Lanza, RN Mario Ashley MD MD bs3 Chelsie Castellano RN RN nj1 Corrections: (The following items were deleted from the chart) 15:32 15:28 42-year-old history of chronic pain, kidney stones, lupus sent in from his pain bs3 medicine doctors for elevated blood pressure per the patient he went for his normal checkup and his blood pressure was elevated and they told him he needed to be evaluated he notes that he feels general malaise and has a vague chest discomfort that started early this morning. He denies any shortness of breath he denies any nausea or vomiting he notes a burning sensation it is not ripping or tearing he does not have associated numbness tingling or weakness in any of his extremities he feels like he has had this pain chronically.. bs3
--- NOTE | 2022-11-27 13:22 | EKG ---
Test Date: 2022-11-26 Test Time: 15:15:43 Coil Tester: ENOC MEASUREMENT RESULTS: Intervals: Rate: 83 LA: 146 QRSD: 88 QT: 382 QTc: 448 [place]: P: 72 LA: 146 QRS: 54 T: 51 INTERPRETIVE STATEMENTS: Normal sinus rhythm Normal ECG No previous ECG available for comparison Electronically Signed On 11-27-22 13:19:50 CDT by Aníbal Rivera
== END 2022-11-26 17:20 | disposition home or self-care (01) ==
LOC: ER 14:31
DX: R07.89 Other chest pain (principal); I10 Essential (primary) hypertension; Z87.442 Personal history of urinary calculi; Z88.5 Allergy status to narcotic agent; Z72.0 Tobacco use
CPT/HCPCS: 93005; 85025; 80048; 36415; 84484; 71045; 96360; 99285; J7030

== ENCOUNTER 2024-02-25 15:48 | Emergency (ER) | payer OTHER ==
[2024-02-25] MEDS ORDERED: HYDROCODONE/APAP 10/325 TAB ONE (16:07)
[2024-02-25] MEDS ORDERED: LIDOCAINE 1% MPF 5 ML VIAL ONE (16:07)
[2024-02-25] MEDS ORDERED: BUPIVACAINE 0.5% PF 10 ML VIAL ONE (16:07)
--- NOTE | 2024-02-25 17:40 | EDPHYS ---
Physician Documentation [facility] Name: Noe Shields Age: 43 yrs Sex: Male : 1980 Arrival Date: 02/25/2024 Time: 15:48 Bed 10 Private MD: ED Physician Delbert Vegas HPI: 02/24 16:15 This 43 yrs old Male presents to ER via Ambulatory with complaints of Laceration To cp Hand - Finger. 16:15 The patient has a laceration occurred at work, and crush injury between two machines at cp work. The laceration(s) is(are) located on the distal phalanx of right index finger. Onset: The symptoms/episode began/occurred just prior to arrival. Associated signs and symptoms: Pertinent negatives: heavy bleeding, numbness distal to injury, suspected foreign body. Historical: - Allergies: 16:02 Toradol; mb9 16:02 tramadol; mb9 - Home Meds: 16:02 pregabalin 200 mg Oral capsule 1 cap 3 times per day [Active]; tizanidine 4 mg Oral mb9 tablet [Active]; 16:04 acetaminophen-codeine Oral [Active]; diclofenac sodium topical [Active]; ibuprofen 600 mb9 mg Oral tablet [Active]; - PMHx: 16:02 Chronic pain; herniated disc in neck; Kidney stones; Lupus erythematosus; neuropathy; mb9 RA; - PSHx: 16:02 kidney stone removal; mb9 - Immunization history:: Adult Immunizations up to date, Last tetanus immunization: up to date. - Infectious Disease History:: Denies. - Social history:: Smoking status: Patient denies any tobacco usage or history of. ROS: 16:20 MS/extremity: Positive for injury or acute deformity, laceration, pain, of the distal cp phalanx of right index finger, 16:20 Constitutional: HX per HPI cp 16:20 All other systems are negative, cp Exam: 16:25 Constitutional: The patient appears in no acute distress, alert, awake, well developed, cp well nourished, uncomfortable, 16:25 Head/Face: Normocephalic, atraumatic. cp 16:25 Chest/axilla: Inspection: normal, 16:25 Cardiovascular: Rate: normal, 16:25 Respiratory: the patient does not display signs of respiratory distress, Respirations: normal, 16:25 Musculoskeletal/extremity: Extremities: grossly normal except: noted in the distal phalanx of right index finger: laceration, pain, nail intact, There is no evidence of decreased ROM, ROM: full active range of motion, in the right index finger, Perfusion: the extremity is normally perfused throughout, Sensation intact. Vital Signs: 16:01 BP 166 / 93; Pulse 74; Resp 18; Temp 98; Pulse Ox 100% ; Weight 105.69 kg; Height 6 ft. mb9 2 in. ; Pain 8/10; 17:42 BP 127 / 79; Pulse 67; Resp 18; Pulse Ox 97% ; as6 16:01 Body Mass Index 29.92 (105.69 kg, 187.96 cm) mb9 16:01 Pain Scale: Adult mb9 Laceration: 17:45 Wound Repair of 2.5cm ( 1.0in ) distal to nail and tip of right index finger laceration cp to distal phalanx of right index finger. Distal neuro/vascular/tendon intact. Anesthesia: Digital block administered with 6 mls of Lido/Marcaine. Wound prep: Moderate cleansing by me, Wound irrigation by me. Skin closed with 6 4-0 Prolene using interrupted sutures and sterile technique. Dressed with Bacitracin. Patient tolerated well. MDM: 15:56 Patient medically screened. cp 16:40 Differential diagnosis: superficial laceration, tendon injury, vascular injury, open cp fracture, nail injury. 17:38 Independent interpretation of the following test(s) in the Emergency Department X-Ray: cp My interpretation is images of right index finger negative for fracture. 17:39 Data reviewed: vital signs, nurses notes, radiologic studies, plain films, and as a cp result, I will discharge patient. 17:39 I considered the following discharge prescriptions or medication management in the emergency department Medications were administered in the Emergency Department. See MAR. Counseling: I had a detailed discussion with the patient and/or guardian regarding the historical points, exam findings, and any diagnostic results supporting the discharge/admit diagnosis, radiology results, the need for outpatient follow up, a family practitioner, to return to the emergency department if symptoms worsen or persist or if there are any questions or concerns that arise at home. Response to treatment: the patient's symptoms have markedly improved after treatment, and as a result, I will discharge patient. Special discussion: I discussed in detail with the patient the higher chance of wound infection based on his presenting history. 02/24 16:07 Order name: XRAY Finger-Thumb RIGHT cp 02/24 17:38 Order name: Wound dressing; Complete Time: 18:10 cp 02/24 17:38 Order name: Finger Splint; Complete Time: 18:10 cp Administered Medications: 16:11 Drug: HYDROcodone-acetaminophen PO 10 mg-325 mg 1 tabs PO once Route: PO; mb9 16:41 Follow up: Response: No adverse reaction mb9 17:41 Drug: Bupivacaine Infiltration (0.5 %) 10 ml 10 ml Infiltration once Volume: 10 ml; as6 Route: Infiltration; 18:10 Follow up: Response: No adverse reaction as6 17:41 Drug: Lidocaine Infiltration (1 %) 5 ml 5 ml Infiltration once; to bedside Volume: 5 as6 ml; Route: Infiltration; 18:10 Follow up: Response: No adverse reaction as6 Disposition: 20:02 I was immediately available on-site in the Emergency Department for consultation in the ms3 care of the patient. Disposition Summary: 02/25/24 17:39 Discharge Ordered Notes: Location: Home cp Problem: new cp Symptoms: have improved cp Condition: Stable cp Diagnosis - Laceration without foreign body of right index finger without damage to nail cp Followup: cp - With: Private Physician - When: 2 - 3 days - Reason: Wound Recheck Discharge Instructions: - Discharge Summary Sheet cp - Laceration Care, Adult cp Forms: - Medication Reconciliation Form cp - Antibiotic Education cp - Prescription Opioid Use cp - Patient Portal Instructions cp - Leadership Thank You Letter cp Prescriptions: - acetaminophen-codeine 300-30 mg Oral tablet - take 2 tablet ORAL route every 8 to 12 hours as needed for pain; 14 tablet; cp Refills: 0, Product Selection Permitted - Cephalexin 500 mg Oral Capsule - take 1 capsule ORAL route every 6 hours for 10 days; 40 capsule; Refills: 0, cp Product Selection Permitted Signatures: Dispatcher [employer] EDMS Mohsen Perry PA PA cp Sims, Marcus, DO DO ms3 Piotr Guerra RN RN as6 Cassy Asencio RN RN mb9 Corrections: (The following items were deleted from the chart) 02/25 12:26 02/24 16:20 All other systems are negative, cp cp
--- NOTE | 2024-02-25 17:40 | ER ---
Nurse's Notes [facility] Name: Noe Shields Age: 43 yrs Sex: Male : 1980 Arrival Date: 02/25/2024 Time: 15:48 Bed 10 Private MD: Diagnosis: Laceration without foreign body of right index finger without damage to nail Presentation: 02/24 16:01 Chief complaint: Patient states: "I was at work today, and my right pointer finger got mb9 smashed between two machines.". Coronavirus screen: Vaccine status: Patient reports being unvaccinated. Ebola Screen: No symptoms or risks identified at this time. Complicating Factors: There are no complicating factors for this patient. Initial Sepsis Screen: Does the patient meet any 2 criteria? No. Patient's initial sepsis screen is negative. Does the patient have a suspected source of infection? No. Patient's initial sepsis screen is negative. Risk Assessment: Do you want to hurt yourself or someone else? Patient reports no desire to harm self or others. Onset of symptoms was February 25, 2024. 16:01 Acuity: XIAO 4 mb9 16:01 Method Of Arrival: Ambulatory mb9 Triage Assessment: 16:02 General: Appears in no apparent distress. Behavior is calm, cooperative. Pain: mb9 Complains of pain in right hand Pain does not radiate. Pain currently is 8 out of 10 on a pain scale. Quality of pain is described as throbbing, Pain began suddenly. EENT: No signs and/or symptoms were reported regarding the EENT system. Neuro: Carreon Agitation-Sedation Scale (RASS): 0 - Alert and Calm Level of Consciousness is awake, alert, obeys commands, Oriented to person, place, time, situation, Appropriate for age. Cardiovascular: Patient's skin is warm and dry. Respiratory: Airway is patent Respiratory effort is even, unlabored, Respiratory pattern is regular, symmetrical. GI: No signs and/or symptoms were reported involving the gastrointestinal system. : No signs and/or symptoms were reported regarding the genitourinary system. Derm: Skin is pink, warm \\T\\ dry. Musculoskeletal: Range of motion: intact in all extremities. Injury Description: Laceration sustained to right pointer finger is clean, 0.5 to 2.5 cm long, not bleeding. Historical: - Allergies: 16:02 Toradol; mb9 16:02 tramadol; mb9 - Home Meds: 16:02 pregabalin 200 mg Oral capsule 1 cap 3 times per day [Active]; tizanidine 4 mg Oral mb9 tablet [Active]; 16:04 acetaminophen-codeine Oral [Active]; diclofenac sodium topical [Active]; ibuprofen 600 mb9 mg Oral tablet [Active]; - PMHx: 16:02 Chronic pain; herniated disc in neck; Kidney stones; Lupus erythematosus; neuropathy; mb9 RA; - PSHx: 16:02 kidney stone removal; mb9 - Immunization history:: Adult Immunizations up to date, Last tetanus immunization: up to date. - Infectious Disease History:: Denies. - Social history:: Smoking status: Patient denies any tobacco usage or history of. Screenin:04 [facility] ED Fall Risk Assessment (Adult) History of falling in the last 3 months, mb9 including since admission No falls in past 3 months (0 pts) Confusion or Disorientation No (0 pts) Intoxicated or Sedated No (0 pts) Impaired Gait No (0 pts) Mobility Assist Device Used No (0 pt) Altered Elimination No (0 pt) Score/Fall Risk Level 0 - 2 = Low Risk Oriented to surroundings, Maintained a safe environment, Educated pt \\T\\ family on fall prevention, incl call for assistance when getting out of bed. Abuse screen: Denies threats or abuse. Nutritional screening: No deficits noted. Tuberculosis screening: No symptoms or risk factors identified. Assessment: 16:03 Reassessment: see triage assessment. mb9 Vital Signs: 16:01 BP 166 / 93; Pulse 74; Resp 18; Temp 98; Pulse Ox 100% ; Weight 105.69 kg; Height 6 ft. mb9 2 in. ; Pain 8/10; 17:42 BP 127 / 79; Pulse 67; Resp 18; Pulse Ox 97% ; as6 16:01 Body Mass Index 29.92 (105.69 kg, 187.96 cm) mb9 16:01 Pain Scale: Adult mb9 ED Course: 15:52 Patient arrived in ED. mg5 15:53 Mohsen Perry PA is PHCP. cp 15:53 Delbert Vegas DO is Attending Physician. cp 15:55 Cassy Asencio RN is Primary Nurse. mb9 16:01 Arm band placed on. mb9 16:02 Triage completed. mb9 16:03 Placed in gown. Bed in low position. Call light in reach. Side rails up X 1. Provided mb9 Education on: press call light if needing anything. Client placed on continuous cardiac and pulse oximetry monitoring. NIBP monitoring applied. 16:21 XRAY Finger-Thumb RIGHT In Process Unspecified. EDMS 17:43 Assist provider with laceration repair on right index finger that was 2.5 cm. or less as6 using kain. Set up tray. Performed by Mohsen ANAYA Dressed with 4X4s, Patient tolerated well. Patient did not have IV access during this emergency room visit. Administered Medications: 16:11 Drug: HYDROcodone-acetaminophen PO 10 mg-325 mg 1 tabs PO once Route: PO; mb9 16:41 Follow up: Response: No adverse reaction mb9 17:41 Drug: Bupivacaine Infiltration (0.5 %) 10 ml 10 ml Infiltration once Volume: 10 ml; as6 Route: Infiltration; 18:10 Follow up: Response: No adverse reaction as6 17:41 Drug: Lidocaine Infiltration (1 %) 5 ml 5 ml Infiltration once; to bedside Volume: 5 as6 ml; Route: Infiltration; 18:10 Follow up: Response: No adverse reaction as6 Medication: 16:04 VIS not applicable for this client. mb9 Outcome: 17:39 Discharge ordered by MD. cp 17:43 Discharged to home ambulatory, as6 17:43 Condition: stable 18:10 Discharge instructions given to patient, Instructed on discharge instructions, follow as6 up and referral plans. medication usage, wound care, Demonstrated understanding of instructions, follow-up care, medications, wound care, Prescriptions given X 2, 18:10 Patient left the ED. as6 Signatures: Dispatcher [employer] EDMS Mohsen Perry PA PA cp Slawson, Ashby, RN RN as6 Cassy Asencio RN RN mb9 Ashanti Camacho mg5
[2024-02-25 18:17] VITALS: BP 127/79; TEMP 98; O2SAT 97
--- NOTE | 2024-02-25 18:32 | RAD REPORT ---
EXAM DESCRIPTION: Finger-Thumb Right - 02/25/2024 4:19 pm CLINICAL HISTORY: SMASH INJURY COMPARISON: No comparisons TECHNIQUE: Three views of the right second finger. FINDINGS: There is no fracture or dislocation. Soft tissue swelling about the second digit and dorsu m of the hand. Soft tissue irregularity at the tip of the distal phalanx. No soft tissue gas or radio paque foreign bodies. No other acute or suspicious findings. IMPRESSION: Soft tissue swelling and irregularity at the tip of the distal phalanx, without acute os seus abnormality.
== END 2024-02-25 18:10 | disposition home or self-care (01) ==
LOC: ER 15:48
PROC: 0HQFXZZ Repair Right Hand Skin, External Approach (ICD-10-PCS; principal; 2024-02-25)
DX: S61.210A Laceration without foreign body of right index finger without damage to nail, initial encounter (principal)
CPT/HCPCS: 73140; 99284; 12001; J2001

== ENCOUNTER 2025-01-11 14:28 | Emergency (ER) | payer BC ==
--- NOTE | 2025-01-11 15:02 | ER ---
Nurse's Notes [facility] Name: Noe Shields Age: 44 yrs Sex: Male : 1980 Arrival Date: 01/11/2025 Time: 14:28 Bed 11 Private MD: Diagnosis: Acute pharyngitis, unspecified Presentation: 01/11 14:51 Coronavirus screen: At this time, the client does not indicate any symptoms associated iw with coronavirus-19. Ebola Screen: No symptoms or risks identified at this time. Initial Sepsis Screen: Does the patient meet any 2 criteria? No. Patient's initial sepsis screen is negative. Does the patient have a suspected source of infection? No. Patient's initial sepsis screen is negative. Risk Assessment: Do you want to hurt yourself or someone else? Patient reports no desire to harm self or others. 14:51 Acuity: XIAO 4 iw 14:51 Method Of Arrival: Ambulatory iw Historical: - Allergies: 14:51 Toradol; iw 14:51 tramadol; iw - PMHx: 14:51 Chronic pain; herniated disc in neck; Kidney stones; Lupus erythematosus; neuropathy; iw RA; - PSHx: 14:51 kidney stone removal; iw - Family history:: not pertinent. - Hospitalizations: : No recent hospitalization is reported. ED Course: 14:30 Patient arrived in ED. im 14:34 Andrea Caldwell MD is Attending Physician. rn 14:51 Triage completed. iw 15:26 Beena Chiu RN is Primary Nurse. iw Administered Medications: 15:26 Drug: Rocephin (cefTRIAXone) IM 1 grams IM once Route: IM; Site: right ventrogluteal; iw Outcome: 15:02 Discharge ordered by . rn 15:37 Patient left the ED. iw Signatures: Beena Chiu RN RN iw Andrea Caldwell MD MD rn Mendoza, Itzel im
--- NOTE | 2025-01-11 15:02 | EDPHYS ---
Physician Documentation [facility] Name: Noe Shields Age: 44 yrs Sex: Male : 1980 Arrival Date: 01/11/2025 Time: 14:28 Bed 11 Private MD: ED Physician Andrea Caldwell HPI: 01/11 14:57 This 44 yrs old Male presents to ER via Ambulatory with complaints of Sore Throat. rn 14:57 The patient presents with sore throat. The patient describes throat pain as raw, rn david. Onset: The symptoms/episode began/occurred 5 day(s) ago. Severity of symptoms: At their worst the symptoms were mild, in the emergency department the symptoms are unchanged. The patient has experienced similar episodes in the past. Patient reports has lupus and gets recurrent throat infections. Seen 2 weeks ago and put on cephalexin for Supposedly strep throat. Patient denies shortness of breath or trouble swallowing. No trauma.. Historical: - Allergies: 14:51 Toradol; iw 14:51 tramadol; iw - PMHx: 14:51 Chronic pain; herniated disc in neck; Kidney stones; Lupus erythematosus; neuropathy; iw RA; - PSHx: 14:51 kidney stone removal; iw - Family history:: not pertinent. - Hospitalizations: : No recent hospitalization is reported. ROS: 14:57 Constitutional: Negative for fever, chills, and weight loss, ENT: Positive for sore rn throat Respiratory: Negative for shortness of breath, cough, wheezing, and pleuritic chest pain, Exam: 14:57 Constitutional: This is a well developed, well nourished patient who is awake, alert, rn and in no acute distress. ENT: Mild pharyngeal erythema. No exudate or swelling. Flat ulcerations noted in oral mucosa. Respiratory: No increased work of breathing. MDM: 14:34 Medical Screening Exam initiated rn 15:01 Differential diagnosis: apthous stomatitis, apthous ulcer, Pharyngitis, viral rn infection. Data reviewed: vital signs, nurses notes, and as a result, I will discharge patient. Counseling: I had a detailed discussion with the patient and/or guardian regarding the historical points, exam findings, and any diagnostic results supporting the discharge/admit diagnosis, the need for outpatient follow up, to return to the emergency department if symptoms worsen or persist or if there are any questions or concerns that arise at home. Special discussion: I discussed with the patient/guardian in detail that at this point there is no indication for admission to the hospital. It is understood, however, that if the symptoms persist or worsen the patient needs to return immediately for re-evaluation. Administered Medications: 15:26 Drug: Rocephin (cefTRIAXone) IM 1 grams IM once Route: IM; Site: right ventrogluteal; iw Disposition Summary: 01/11/25 15:02 Discharge Ordered Notes: Location: Home rn Problem: new rn Symptoms: are unchanged rn Condition: Stable rn Diagnosis - Acute pharyngitis, unspecified rn Followup: rn - With: Private Physician - When: As needed - Reason: Recheck today's complaints, Re-evaluation by your physician Discharge Instructions: - Discharge Summary Sheet rn - Pharyngitis rn - Strep Throat, Adult rn Forms: - Medication Reconciliation Form rn - Antibiotic environmental journalist - Prescription Opioid Use rn - Patient Portal Instructions rn - Leadership Thank You Letter rn Prescriptions: - Augmentin 875-125 mg Oral Tablet - take 1 tablet ORAL route every 12 hours for 10 days; 20 tablet; Refills: 0, rn Product Selection Permitted - Valtrex 500 mg Oral tablet - take 2 tablet ORAL route every 12 hours for 7 days; 28 tablet; Refills: 0, rn Product Selection Permitted Signatures: Beena Chiu RN RN Andrea Caldwell MD MD rn travel: (The following items were deleted from the chart) 15:01 14:57 Constitutional: This is a well developed, well nourished patient who is awake, rn alert, and in no acute distress. ENT: Mild pharyngeal erythema. No exudate or swelling. Flat ulcerations noted in oral mucosa. rn
[2025-01-11] MEDS ORDERED: LIDOCAINE 1% MPF 2 ML AMPULE ONE (15:15)
[2025-01-11] MEDS ORDERED: CEFTRIAXONE 1000 MG/VIAL ONE (15:15)
== END 2025-01-11 15:37 | disposition home or self-care (01) ==
LOC: ER 14:28
DX: J02.9 Acute pharyngitis, unspecified (principal)
CPT/HCPCS: J0696

== ENCOUNTER 2025-01-31 00:24 | Emergency (ER) | payer BC ==
[2025-01-31] MEDS ORDERED: dexAMETHasone 10 MG/ML VIAL ONE (01:03)
--- NOTE | 2025-01-31 02:29 | ER ---
Nurse's Notes [facility] Name: Noe Shields Age: 44 yrs Sex: Male : 1980 Arrival Date: 01/31/2025 Time: 00:24 Bed 8 Private MD: Diagnosis: Streptococcal tonsillitis Presentation: 01/31 00:32 Chief complaint: Patient states: SORE THROAT, DX WITH STREP 2 WEEKS AGO AND PAIN HAS vc1 RETURNED. PT COMPLETED AUGMENTIN AND IS NOW ON CEFDINIR 300MG AND STATES IT'S GETTING WORSE. Coronavirus screen: Client denies travel out of the [place] in the last 14 days. Ebola Screen: Patient denies exposure to infectious person. Initial Sepsis Screen: Does the patient meet any 2 criteria? No. Patient's initial sepsis screen is negative. Does the patient have a suspected source of infection? No. Patient's initial sepsis screen is negative. Risk Assessment: Do you want to hurt yourself or someone else? Patient reports no desire to harm self or others. Onset of symptoms is unknown. 00:32 Method Of Arrival: Ambulatory vc1 00:32 Acuity: XIAO 4 vc1 00:32 Acuity: XIAO 4 vc1 Triage Assessment: 00:36 General: Appears in no apparent distress. uncomfortable, Behavior is calm, cooperative. vc1 Pain: Complains of pain in uvula, left aspect of posterior pharynx and right aspect of posterior pharynx Pain currently is 8 out of 10 on a pain scale. EENT: Reports pain. Historical: - Allergies: 00:36 Toradol; vc1 00:36 tramadol; vc1 - PMHx: 00:36 Chronic pain; herniated disc in neck; Kidney stones; Lupus erythematosus; neuropathy; vc1 RA; - Immunization history:: Adult Immunizations up to date. - Infectious Disease History:: Denies. - Social history:: Smoking status: Patient denies any tobacco usage or history of. Patient/guardian denies using alcohol, street drugs. - Family history:: not pertinent. Screenin:48 [facility] ED Fall Risk Assessment (Adult) History of falling in the last 3 months, jb4 including since admission No falls in past 3 months (0 pts) Confusion or Disorientation No (0 pts) Intoxicated or Sedated No (0 pts) Impaired Gait No (0 pts) Mobility Assist Device Used No (0 pt) Altered Elimination No (0 pt) Score/Fall Risk Level 0 - 2 = Low Risk Oriented to surroundings, Maintained a safe environment. Abuse screen: Denies threats or abuse. Nutritional screening: No deficits noted. Tuberculosis screening: No symptoms or risk factors identified. Assessment: 00:55 General: Appears in no apparent distress. comfortable, Behavior is calm, cooperative, jb4 appropriate for age. Pain: Complains of pain in mouth Pain does not radiate. Pain currently is 7 out of 10 on a pain scale. Neuro: Level of Consciousness is awake, alert, obeys commands, Oriented to person, place, time, situation. Cardiovascular: Patient's skin is warm and dry. Respiratory: Airway is patent Respiratory effort is even, unlabored, Respiratory pattern is regular, symmetrical. EENT: Lesions noted. Throat is clear has enlarged tonsils with gag reflex present. Derm: Skin is intact, Skin is pink, warm \T\ dry. Musculoskeletal: Circulation, motion, and sensation intact. Range of motion: intact in all extremities. 02:36 Reassessment: Patient appears in no apparent distress at this time. Patient and/or hm5 family updated on plan of care and expected duration. Pain level reassessed. Patient is alert, oriented x 3, equal unlabored respirations, skin warm/dry/pink. Vital Signs: 00:32 BP 137 / 95; Pulse 70; Resp 18; Pulse Ox 100% ; Weight 102.51 kg; Height 6 ft. 2 in. ; vc1 Pain 7/10; 00:32 Body Mass Index 29.02 (102.51 kg, 187.96 cm) vc1 00:32 Pain Scale: Adult vc1 ED Course: 00:26 Patient arrived in ED. mr 00:26 Ubaldo Ty MD is Attending Physician. rt 00:36 Triage completed. vc1 00:36 Arm band placed on right wrist. vc1 00:48 Gustavo Renee RN is Primary Nurse. jb4 00:48 Patient has correct armband on for positive identification. Bed in low position. Call jb4 light in reach. Side rails up X 1. Provided Education on: plan of care. 01:06 Inserted saline lock: 20 gauge in right antecubital area, using aseptic technique. kmf Flushed with 10 mL NS. 01:21 No provider procedures requiring assistance completed. al5 01:31 CT Soft Tissue Neck W/contr In Process Unspecified. EDMS 02:29 Stephie Vazquez MD is Referral Physician. rt 02:36 IV discontinued, intact, bleeding controlled, No redness/swelling at site. Pressure hm5 dressing applied. Administered Medications: 01:08 Drug: Decadron - Dexamethasone IVP 10 mg IVP once Route: IVP; Site: right antecubital; jb4 Medication: 00:48 VIS not applicable for this client. jb4 Outcome: 02:29 Discharge ordered by MD. rt 02:36 Discharged to home ambulatory, hm5 02:36 Condition: stable 02:36 Discharge instructions given to patient, Instructed on discharge instructions, follow up and referral plans. medication usage, Demonstrated understanding of instructions, follow-up care, medications, Prescriptions given X 1, 02:37 Patient left the ED. 5 Signatures: Dispatcher [employer] EDWY Irvin Cassy, Reg Reg mr Gustavo Renee, RN RN jb4 Ava Ospina RN RN vc1 Ubaldo Ty MD MD rt Shima Aguirre [facility] Rossana Smith RN RN al5 Setphanie Emanuel, GERARDO RN hm5
--- NOTE | 2025-01-31 02:29 | EDPHYS ---
Physician Documentation [facility] Name: Noe Shields Age: 44 yrs Sex: Male : 1980 Arrival Date: 01/31/2025 Time: 00:24 Bed 8 Private MD: ED Physician Ubaldo Ty HPI: 01/31 05:05 This 44 yrs old Male presents to ER via Ambulatory with complaints of Sore Throat. rt 05:05 About 2 weeks ago, the patient was diagnosed with strep throat, prescribed Augmentin. rt States that he did not improve, went to an [id number] ER where he was prescribed cefdinir which he is currently still taking. States that the pain to the throat has worsened. Denies other acute complaints at this time, symptoms are moderate in severity, no other aggravating or alleviating factors.. Historical: - Allergies: 00:36 Toradol; vc1 00:36 tramadol; vc1 - PMHx: 00:36 Chronic pain; herniated disc in neck; Kidney stones; Lupus erythematosus; neuropathy; vc1 RA; - Immunization history:: Adult Immunizations up to date. - Infectious Disease History:: Denies. - Social history:: Smoking status: Patient denies any tobacco usage or history of. Patient/guardian denies using alcohol, street drugs. - Family history:: not pertinent. ROS: 05:05 Constitutional: Negative for fever, chills, and weight loss, Cardiovascular: Negative rt for chest pain, palpitations, and edema, Respiratory: Negative for shortness of breath, cough, wheezing, and pleuritic chest pain, Abdomen/GI: Negative for abdominal pain, nausea, vomiting, diarrhea, and constipation, MS/Extremity: Negative for injury and deformity, Skin: Negative for injury, rash, and discoloration, 05:05 ENT: Positive for sore throat, Negative for rhinorrhea, Exam: 05:05 Constitutional: This is a well developed, well nourished patient who is awake, alert, rt and in no acute distress. Head/Face: Normocephalic, atraumatic. Chest/axilla: Normal chest wall appearance and motion. Nontender with no deformity. No lesions are appreciated. Cardiovascular: Regular rate and rhythm with a normal S1 and S2. No gallops, murmurs, or rubs. Normal PMI, no JVD. No pulse deficits. Respiratory: Lungs have equal breath sounds bilaterally, clear to auscultation and percussion. No rales, rhonchi or wheezes noted. No increased work of breathing, no retractions or nasal flaring. Abdomen/GI: Soft, non-tender, with normal bowel sounds. No distension or tympany. No guarding or rebound. No evidence of tenderness throughout. Skin: Warm, dry with normal turgor. Normal color with no rashes, no lesions, and no evidence of cellulitis. MS/ Extremity: Pulses equal, no cyanosis. Neurovascular intact. Full, normal range of motion. 05:05 ENT: Posterior pharyngeal erythema, uvula is midline, 2+ tonsils, no exudates. Vital Signs: 00:32 BP 137 / 95; Pulse 70; Resp 18; Pulse Ox 100% ; Weight 102.51 kg; Height 6 ft. 2 in. 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 Data reviewed: rt vital signs, nurses notes, radiologic studies. I considered the following discharge prescriptions or medication management in the emergency department Medications were administered in the Emergency Department. See MAR. Independent interpretation of the following test(s) in the Emergency Department CT Scan: My interpretation is No abscess seen on my interpretation of CT scan images. Test considered but Not performed: Labs: Patient currently undergoing treatment for strep, do not believe that repeat swabs are needed. Care significantly affected by the following chronic conditions: Lupus. Counseling: I had a detailed discussion with the patient and/or guardian regarding the historical points, exam findings, and any diagnostic results supporting the discharge/admit diagnosis, radiology results, the need for outpatient follow up. Response to treatment: the patient's symptoms have mildly improved after treatment. 01/31 00:57 Order name: CT Soft Tissue Neck W/contr rt Administered Medications: 01:08 Drug: Decadron - Dexamethasone IVP 10 mg IVP once Route: IVP; Site: right antecubital; jb4 Disposition Summary: 01/31/25 02:29 Discharge Ordered Notes: Location: Home rt Problem: an ongoing problem rt Symptoms: have improved rt Condition: Stable rt Diagnosis - Streptococcal tonsillitis rt Followup: rt - With: Stephie Vazquez MD - When: 5 - 6 days - Reason: Discharge Instructions: - Discharge Summary Sheet rt - Tonsillitis rt Forms: - Medication Reconciliation Form rt - Antibiotic Education rt - Prescription Opioid Use rt - Patient Portal Instructions rt - Leadership Thank You Letter rt Prescriptions: - Prednisone 20 mg Oral Tablet - take 2 tablets ORAL route once daily for 5 days; 10 tablet; Refills: 0, Product rt Selection Permitted Signatures: Dispatcher [employer] EDMS Gustavo Renee, RN RN jb4 Ava Ospina RN RN vc1 Ubaldo Ty MD MD rt Corrections: (The following items were deleted from the chart) 00:58 00:58 Soft Tissue Neck W/Contr+[id number].BRZ ordered. EDMS EDMS
[2025-01-31 03:00] VITALS: BP 137/95; O2SAT 100
--- NOTE | 2025-01-31 03:12 | RAD REPORT ---
EXAM: CT Neck With Intravenous Contrast CLINICAL HISTORY: SORE THROAT TECHNIQUE: Axial computed tomography images of the neck with intravenous contrast. Sagittal and coronal reform atted images were created and reviewed. This CT exam was performed using one or more of the following dose reduction techniques: automated exposure control, adjustment of the mA and/or kV acc ording to patient size, and/or use of iterative reconstruction technique. COMPARISON: No relevant prior studies available. FINDINGS: Oropharynx: [place] tonsils are mildly prominent. No adjacent edema. No peritonsillar abscess. Hypopharynx: Unremarkable. Larynx: Unremarkable. Normal epiglottis. Trachea: Unremarkable. Retropharyngeal space: Unremarkable. Submandibular/parotid glands: Unremarkable. Glands are normal in size. Thyroid: Unremarkable. No enlarged or calcified nodules. Bones/joints: Remote bilateral nasal bone fracture deformities. No acute fracture. Multilevel degen erative changes most pronounced at C5-C6. Soft tissues: Unremarkable. Vasculature: No acute findings. Lymph nodes: Unremarkable. No lymphadenopathy. Lung apices: Unremarkable as visualized. IMPRESSION: Mildly prominent palatine tonsils which may be related to hyperplasia or early tonsillitis. No perito nsillar abscess. Electronically signed by: Jaelyn Jenkins MD 01/31/2025 02:22 AM CDT Due to temporary technical issues with the PACS/[employer] reporting system, reports are being bharati d by the in-house radiologist without review as a courtesy to ensure prompt reporting the interpreting radiologist is fully responsible for the content of the report. Transcribed Date/Time: 01/31/2025 3:12 AM
== END 2025-01-31 02:37 | disposition home or self-care (01) ==
LOC: ER 00:24
DX: J03.00 Acute streptococcal tonsillitis, unspecified (principal)
CPT/HCPCS: 70491; 96374; 99284; Q9967; J1100